=== PATIENT | female | born 1975 | race Caucasian/White ===

== ENCOUNTER → 2017-11-08 | Outpatient (CLI) | payer MEDICAID ==
--- NOTE | 2017-11-09 08:28 | MM ---
Reason for exam: screening (asymptomatic). Last mammogram was performed 5 years and 2 months ago. History: Family history of breast cancer in aunt at age 33. Physical Findings: A clinical breast exam by your physician is recommended on an annual basis and results should be correlated with mammographic findings. MG 3D Screening Mammo W/Cad Bilateral CC and MLO view(s) were taken. Prior study comparison: August 28, 2012, CAD bilateral diagnostic mammogram. February 03, 2011, bilateral digital screening mammo w/CAD. There are scattered fibroglandular densities. Finding: There is a new group of indeterminate calcifications in the left breast. ASSESSMENT: Incomplete: need additional imaging evaluation, BI-RAD 0 RECOMMENDATION: Special view mammogram of the left breast. [facility] will attempt to contact patient to return for supplemental views.
== END | disposition home or self-care (01) ==
LOC: RADMAMWWP 07:20
PROVIDERS: ATTEND Family Medicine
DX: Z12.31 Encounter for screening mammogram for malignant neoplasm of breast (principal)
CPT/HCPCS: 77063; 77067

== ENCOUNTER → 2017-11-11 | Outpatient (CLI) | payer MEDICAID ==
--- NOTE | 2017-11-15 07:54 | MM ---
Reason for exam: additional evaluation requested from abnormal screening. Last mammogram was performed less than 1 month ago. History: Family history of breast cancer in aunt at age 33. Physical Findings: Nurse did not find any significant physical abnormalities on exam. MG 3D Work Up W/Cad LT CC with magnification, LM with magnification, and LM view(s) were taken of the left breast. Prior study comparison: November 08, 2017, bilateral MG 3d screening mammo w/cad. August 28, 2012, CAD bilateral diagnostic mammogram. There are scattered fibroglandular densities. Finding: There is a indeterminate group of microcalcifications in the left breast. These results were verbally communicated with the patient and result sheet given to the patient on 11/11/17. ASSESSMENT: Suspicious, BI-RAD 4 RECOMMENDATION: Stereotactic core biopsy of the left breast. Called Dr. Ev Hess with mammographic findings and has scheduled an appointment for the patient for 12/14/17 at 3:[address] Héctor Hess. Biopsy scheduled for 11/24/17. PRELIMINARY REPORT CALLED AND FAXED TO DR. HESS ON 11/15/17.
== END | disposition home or self-care (01) ==
LOC: RADMAMWWP 06:56
PROVIDERS: ATTEND Family Medicine
DX: R92.8 Other abnormal and inconclusive findings on diagnostic imaging of breast (principal)
CPT/HCPCS: 77065; G0279

== ENCOUNTER 2018-03-02 14:15 | Emergency (ER) | payer MEDICAID ==
[2018-03-02 14:26] VITALS: TEMP 98.3
[2018-03-02] MEDS ORDERED: KETOROLAC 30 MG/ML 1 ML VIAL IVP STA (14:58)
[2018-03-02] MEDS ORDERED: SODIUM CHLORIDE 0.9% 1,000 ML IV STA ×2 (14:58)
[2018-03-02 15:35] LABS: Basophils % (A) 0 %; Eosinophils # (A) 0.3 k/uL (0-0.7); Eosinophils % (A) 4 %; HCT 42.3 % (34.0-46.0); HGB 14.1 gm/dL (11.4-16.0); Lymphocytes # (A) 1.5 k/uL (1.0-4.8); Lymphocytes % (A) 19 %; MCH 29.4 pg (25.0-35.0); MCHC 33.4 g/dL (31.0-37.0); MCV 88.1 fL (80.0-100.0); Mean Platelet Volume 7.7; Monocytes # (A) 0.4 k/uL (0-1.0); Monocytes % (A) 5 %; Neutrophils # (A) 5.7 k/uL (1.3-7.7); Neutrophils % (A) 71 %; Platelet Count 275 k/uL (150-450); RDW 12.9 % (11.5-15.5); WBC 8.1 k/uL (3.8-10.6)
[2018-03-02 15:38] LABS: Appearance,Urine Clear (Clear); Bilirubin,Urine Negative (Negative); Blood,Urine Negative (Negative); Color,Urine Yellow; Glucose,Urine (UA) Negative (Negative); Ketones,Urine Trace (Negative); Leukocyte Esterase,Urine Negative (Negative); Nitrite,Urine Negative (Negative); PH, Urine 5.5 (5.0-8.0); Protein,Urine Negative (Negative); Specific Gravity,Urine 1.022 (1.001-1.035); Urobilinogen,Urine <2.0 mg/dL (<2.0)
[2018-03-02 15:39] LABS: ALT 25 U/L (9-52); AST 19 U/L (14-36); Albumin 4.4 g/dL (3.5-5.0); Alkaline Phosphatase 78 U/L (38-126); Amylase 59 U/L (30-110); Anion Gap 11 mmol/L; Blood Urea Nitrogen 10 mg/dL (7-17); Calcium 9.4 mg/dL (8.4-10.2); Carbon Dioxide 22 mmol/L (22-30); Chloride 106 mmol/L (98-107); Glucose 92 mg/dL (74-99); Lipase 97 U/L (23-300); Potassium 4.1 mmol/L (3.5-5.1); Sodium 139 mmol/L (137-145); Total Bilirubin 0.4 mg/dL (0.2-1.3)
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
--- NOTE | 2018-03-02 15:55 | XR ---
EXAMINATION TYPE: XR KUB DATE OF EXAM: 03/02/2018 3:48 PM CLINICAL HISTORY: Flank pain and lower abdominal pain TECHNIQUE: Single upright image of the abdomen is obtained. COMPARISON: 01/21/2013. FINDINGS: Scattered gas is seen in non-distended small bowel loops. Gas and fecal material is seen in non-distended colon. There is no visceromegaly, pneumoperitoneum, or abnormal calcification apprecia anushka. The lung bases are clear and the osseous structures are intact. IMPRESSION: Nonobstructive bowel gas pattern.
--- NOTE | 2018-03-02 17:09 | CT ---
EXAMINATION TYPE: CT abdomen pelvis w con DATE OF EXAM: 03/02/2018 COMPARISON: 07/29/2014 HISTORY: Low back pain radiating anteriorly. Nausea. CT DLP: 1566 mGycm Automated exposure control for dose reduction was used. TECHNIQUE: Helical acquisition of images was performed from the lung bases through the pelvis. CONTRAST: Performed without Oral Contrast and with IV Contrast, patient injected with 100 mL of Isovue M300. FINDINGS: Lung bases are clear. There is no pleural effusion. Liver spleen pancreas gallbladder appear normal. Bile ducts are not dilated. There is no adrenal mass . Kidneys show satisfactory contrast opacification. There is no hydronephrosis. There is no retroperi toneal adenopathy. There is no ascites. There is some linear density in the subcutaneous fat over the lower anterior abdomen could relate to previous surgery. Bladder distends smoothly. There is no pelv ic mass. Bony structures appear intact. . There is some 2 cm soft tissue density in the small bowel mesentery in the right lower quadrant wit h calcification.: The appendix appears normal. There is a 2.4 x 2 cm density with apparent calcification in the posteri or right lower quadrant. This could be the right ovary. IMPRESSION: THERE IS A SMALL BOWEL MESENTERIC MASS WITH CALCIFICATION. THERE IS ALSO A SECOND MASS WITH CALCIFICA TION POSTERIORLY IN THE PELVIS ON THE RIGHT SIDE. THE SECOND MORE POSTERIOR DENSITY COULD BE THE RIGH T OVARY. THESE DENSITIES HAVE INCREASED COMPARED TO OLD CT SCAN OF 07/29/2014. CLINICAL SIGNIFICANCE IS NOT CLEAR. THERE IS HYSTERECTOMY COMPARED TO OLD EXAM.
[2018-03-02] MEDS ORDERED: MORPHINE SULFATE 2 MG/ML SYRINGE IVP STA (17:24)
[2018-03-02] MEDS ORDERED: ORPHENADRINE 30 MG/ML 2 ML VIAL IVP STA (17:25)
[2018-03-02 17:50] VITALS: BP 136/79; PULSE 79; RESP 16
[2018-03-02] MEDS ORDERED: ACET/COD 300 MG/30 MG STARTER PACK 6 TAB BTL PO STA (17:58)
== END 2018-03-02 18:18 | disposition home or self-care (01) ==
LOC: EC 14:15
DX: R19.00 Intra-abdominal and pelvic swelling, mass and lump, unspecified site (principal); M54.5 Low back pain; F41.9 Anxiety disorder, unspecified; F32.9 Major depressive disorder, single episode, unspecified; Z87.19 Personal history of other diseases of the digestive system; Z87.42 Personal history of other diseases of the female genital tract; Z90.710 Acquired absence of both cervix and uterus; Z98.890 Other specified postprocedural states; Z79.899 Other long term (current) drug therapy; Z88.5 Allergy status to narcotic agent; Z88.6 Allergy status to analgesic agent; Z88.8 Allergy status to other drugs, medicaments and biological substances
CPT/HCPCS: 36415; 74018; 74177; 80053; 81003; 82150; 83690; 85025; 93005; 96361; 96374; 96375; 99285

== ENCOUNTER → 2018-05-17 | Outpatient (CLI) | payer MEDICAID ==
--- NOTE | 2018-05-17 09:57 | MM ---
Reason for exam: follow-up at short interval from prior study. Last mammogram was performed 6 months ago. History: Family history of breast cancer in aunt at age 33. Benign MG stereo VAD BX LT of the left breast, November 24, 2017. Physical Findings: Nurse did not find any significant physical abnormalities on exam. MG 3D Diag Mammo W/Cad LT CC, MLO, and ML view(s) were taken of the left breast. Prior study comparison: November 11, 2017, left breast MG 3d work up w/cad LT. November 08, 2017, bilateral MG 3d screening mammo w/cad. There are scattered fibroglandular densities. Previous mammotome biopsy in the left breast. There is chronic nodularity in the left breast. No significant new findings when compared with previous films. These results were verbally communicated with the patient and result sheet given to the patient on 05/17/18. ASSESSMENT: Negative, BI-RAD 1 RECOMMENDATION: Return to routine screening mammogram schedule for both breasts.
== END | disposition home or self-care (01) ==
LOC: RADMAMWWP 07:34
PROVIDERS: ATTEND Surgery
DX: R92.8 Other abnormal and inconclusive findings on diagnostic imaging of breast (principal)
CPT/HCPCS: 77061; 77065

== ENCOUNTER → 2018-07-05 | Day surgery (SDC) | payer BC, MEDICAID ==
[2018-07-04 14:27] VITALS: BMI 32.5
[~2018-07-05] MED LIST: LACTATED RINGERS 1,000 ML IV SCH; PROPOFOL 10 MG/ML 20 ML VIAL IV ONE
[2018-07-05 13:18] VITALS: RESP 16; TEMP 98.7
--- NOTE | 2018-07-05 13:42 | P.GSHP ---
History of Present Illness H&P Date: 07/05/18 Chief Complaint: Change in bowel habits Patient here today for colonoscopy. She has a history of CAT scan findings of a calcified mass in her right side mesentery. Mild constipation occasionally. No rectal bleeding or melena. Past Medical History Past Medical History: Asthma Additional Past Medical History / Comment(s): gastric ulcers, GI bleed History of Any Multi-Drug Resistant Organisms: None Reported Past Surgical History: Section, Hysterectomy, Orthopedic Surgery Additional Past Surgical History / Comment(s): ovarian cyst, femur, oral surgery Past Anesthesia/Blood Transfusion Reactions: No Reported Reaction Smoking Status: Never smoker - Past Family History Father Family Medical History: COPD, Hyperlipidemia, Hypertension Sister(s) Additional Family Medical History / Comment(s): heart disease @ 8 months, congenital Mother Family Medical History: Hyperlipidemia, Hypertension Medications and Allergies Home Medications Medication Instructions Recorded Confirmed Type Sertraline [Zoloft] 100 mg PO DAILY 02/26/15 07/05/18 History Zolpidem [Ambien] 10 mg PO HS 02/26/15 07/05/18 History Phentermine HCl [Adipex-P] 37.5 mg PO QAM 11/14/17 07/05/18 History Acetaminophen/Diphenhydramine 1 each PO HS 07/04/18 07/05/18 History [Tylenol PM Extra Strength] Allergies Allergy/AdvReac Type Severity Reaction Status Date / Time ibuprofen AdvReac PAST Verified 07/05/18 13:19 HISTORY OF GI BLEED morphine AdvReac Rapid Verified 07/05/18 13:19 Heart Rate, "JITTERY" pregabalin [From Lyrica] AdvReac JITTERY, Verified 07/05/18 13:19 PALPITATIONS Surgical - Exam Vital Signs Temp Pulse Resp BP Pulse Ox 98.7 F 88 16 127/78 100 07/05/18 13:12 07/05/18 13:12 07/05/18 13:12 07/05/18 13:12 07/05/18 13:12 Physical exam: General: Well-developed, well-nourished HEENT: Normocephalic, sclerae nonicteric Abdomen: Nontender, nondistended Extremities: No edema Neuro: Alert and oriented Assessment and Plan (1) Change in bowel habits Narrative/Plan: Will proceed with colonoscopy Current Visit: Yes Status: Acute Code(s): R19.4 - CHANGE IN BOWEL HABIT SNOMED Code(s): 730842079
--- NOTE | 2018-07-05 14:07 | P.PCN ---
Date of Procedure: 07/05/18 Procedure(s) Performed: PREOPERATIVE DIAGNOSIS: Change in bowel habits, recent abnormal CAT scan POSTOPERATIVE DIAGNOSIS: Ileocecal valve lesion, transverse colon polyp PROCEDURE: Colonoscopy with snare polypectomy and biopsy ANESTHESIA: MAC SURGEON: Héctor Hess M.D. SPECIMENS: Ileocecal valve lesion, polyp ENDOSCOPIC PROCEDURE: The patient was placed on the endoscopy table in the left decubitus position. The Olympus colonoscope was inserted into the anus and passed under direct visualization to the base of the cecum. The appendiceal orifice was visualized. From that point the scope was slowly withdrawn inspecting all surfaces carefully. At the valve itself there appeared to be some friability. It was difficult to visualize this area well. It appeared to be right at the ileocecal valve however. 2 biopsies were taken using the cold biopsy forceps. This appeared somewhat friable and there was some oozing. This eventually subsided. I was unable to intubate the ileocecal valve itself The remainder of the cecum and ascending colon appeared normal. In the mid transverse colon a pedunculated polyp was identified and removed using the snare with cautery technique. The remainder of the transverse descending sigmoid and rectum appeared normal. There was no visible diverticulosis. Digital rectal examination was normal. The patient was taken to the recovery room in stable condition per anesthesia guidelines. RECOMMENDATIONS: Await biopsy results. Follow-up in the office 1-2 weeks.
[2018-07-05 14:39] VITALS: BP 110/77; PULSE 76
== END | disposition home or self-care (01) ==
LOC: ORWHC2ENDO 12:43
PROVIDERS: ATTEND Surgery
DX: C7A.021 Malignant carcinoid tumor of the cecum (principal); D12.3 Benign neoplasm of transverse colon; J45.909 Unspecified asthma, uncomplicated; F41.9 Anxiety disorder, unspecified; F32.9 Major depressive disorder, single episode, unspecified; E66.9 Obesity, unspecified; Z82.49 Family history of ischemic heart disease and other diseases of the circulatory system; Z79.899 Other long term (current) drug therapy; Z88.6 Allergy status to analgesic agent; Z88.5 Allergy status to narcotic agent; Z88.8 Allergy status to other drugs, medicaments and biological substances; Z79.891 Long term (current) use of opiate analgesic; Z68.36 Body mass index [BMI] 36.0-36.9, adult
CPT/HCPCS: 88305; 88342; 88341; 45385; 45380; J2704

== ENCOUNTER → 2018-07-19 | Outpatient (CLI) | payer BC ==
[2018-07-19 10:43] LABS: Basophils % (A) 1 %; Eosinophils # (A) 0.3 k/uL (0-0.7); Eosinophils % (A) 5 %; HCT 44.9 % (34.0-46.0); HGB 14.6 gm/dL (11.4-16.0); Lymphocytes # (A) 1.4 k/uL (1.0-4.8); Lymphocytes % (A) 26 %; MCH 29.7 pg (25.0-35.0); MCHC 32.6 g/dL (31.0-37.0); MCV 91.1 fL (80.0-100.0); Mean Platelet Volume 6.9; Monocytes # (A) 0.3 k/uL (0-1.0); Monocytes % (A) 5 %; Neutrophils # (A) 3.3 k/uL (1.3-7.7); Neutrophils % (A) 60 %; Platelet Count 324 k/uL (150-450); RBC 4.92 m/uL (3.80-5.40); WBC 5.4 k/uL (3.8-10.6)
[2018-07-19 15:56] LABS: Albumin 4.7 g/dL (3.80-4.90); Albumin/Globulin Ratio 2.47 (1.20-2.10); Anion Gap 6.8 mmol/L (4.00-12.00); Calcium 9.4 mg/dL (8.7-10.3); Carbon Dioxide 28.2 mmol/L (21.6-31.8); Globulin 1.9 g/dL (2.1-3.7); Potassium 5.1 mmol/L (3.5-5.5); Total Bilirubin 0.3 mg/dL (0.3-1.2); Total Protein 6.6 g/dL (6.2-8.2)
== END | disposition home or self-care (01) ==
LOC: LABWHC1 09:37
PROVIDERS: ATTEND Internal Medicine Hematology & Oncology
DX: C7A.021 Malignant carcinoid tumor of the cecum (principal); C7A.098 Malignant carcinoid tumors of other sites; J45.998 Other asthma; M12.9 Arthropathy, unspecified; N18.9 Chronic kidney disease, unspecified; D63.1 Anemia in chronic kidney disease
CPT/HCPCS: 36415; 80053; 83497; 84260; 85025; 86316

== ENCOUNTER → 2018-07-24 | Outpatient (CLI) | payer BC ==
--- NOTE | 2018-07-24 14:56 | CT ---
EXAMINATION TYPE: CT ChestAbdPelvis w con DATE OF EXAM: 07/24/2018 COMPARISON: Prior CT abdomen pelvis 03/02/[address] scan 07/29/2014 HISTORY: Colon CA, R/O metastatic disease CT DLP: 1925 mGycm Automated exposure control for dose reduction was used. CONTRAST: CT scan of the chest, abdomen and pelvis is performed with Oral Contrast and with IV Contrast, patien t injected with 100 mL of Isovue 300. FINDINGS: Anterior abdominal wall hernia contains fat and the periumbilical location towards the righ t. There are 2 calcifications in the right lower quadrant, increasing soft tissue mass is present at this level which now measures approximately 2.3 x 1.9 x 1.8 cm compared to prior of 07/29/2014 but it only measured 14 mm in greatest dimension and approximately 2 cm in greatest transverse dimension on most recent CT abdomen pelvis. LUNGS: The lungs are grossly clear, there is no concerning parenchymal mass or nodule identified. T here is no pleural effusion or pneumothorax seen. The tracheobronchial tree is patent. MEDIASTINUM: There are no greater than 1 cm hilar or mediastinal lymph nodes. No pericardial effusi on is seen. AORTA: No significant abnormality is seen. OTHER: No additional significant abnormality is seen. LIVER/GB: No significant abnormality is appreciated. PANCREAS: No significant abnormality is seen. SPLEEN: No significant abnormality is seen. ADRENALS: No significant abnormality is seen. KIDNEYS: No significant abnormality is seen. REPRODUCTIVE ORGANS: Probable bilateral ovarian tissue present along the pelvic sidewalls similar to prior, uterus is absent. BOWEL: Axial image #60 shows nonspecific bowel wall thickening which has developed in the interval, I question whether this represents patient's known colon cancer. Colonic wall thickening also noted a t the rectosigmoid level, axial image 106. FREE AIR: No Free Air visible. ASCITES: None seen. RETROPERITONEAL ADENOPATHY: No retroperitoneal adenopathy is seen. LYMPH NODES: No greater than 1 cm abdominal or pelvic lymph nodes are appreciated. URINARY BLADDER: No significant abnormality is seen. PELVIC ADENOPATHY: None visualized. OSSEOUS STRUCTURES: No significant abnormality is seen. IMPRESSION: Nonspecific colonic wall thickening. No evident adenopathy or ascites, no liver mass. Pos top changes.
== END | disposition home or self-care (01) ==
LOC: RADCTMAIN 11:53
PROVIDERS: ATTEND Internal Medicine Hematology & Oncology
DX: K63.89 Other specified diseases of intestine (principal); C7A.021 Malignant carcinoid tumor of the cecum; Z88.8 Allergy status to other drugs, medicaments and biological substances
CPT/HCPCS: 71260; 74177; Q9967

== ENCOUNTER → 2018-08-16 | Outpatient (CLI) | payer BC ==
[2018-08-16 16:14] LABS: HCT 44.9 % (34.0-46.0); HGB 14.5 gm/dL (11.4-16.0); MCH 29.6 pg (25.0-35.0); MCHC 32.3 g/dL (31.0-37.0); MCV 91.5 fL (80.0-100.0); Mean Platelet Volume 7.7; Platelet Count 317 k/uL (150-450); WBC 10.2 k/uL (3.8-10.6)
[2018-08-16 16:35] LABS: Potassium 5.3 mmol/L (3.5-5.1)
== END | disposition home or self-care (01) ==
LOC: LABPAT 15:21
PROVIDERS: ATTEND Surgery
DX: Z01.812 Encounter for preprocedural laboratory examination (principal); C18.9 Malignant neoplasm of colon, unspecified
CPT/HCPCS: 36415; 80051; 85027; 86850; 86900; 86901

== ENCOUNTER 2018-08-25 07:45 | Inpatient (IN) | payer BC ==
[2018-08-21 11:14] VITALS: BMI 32.8
[~2018-08-25 07:45] MED LIST changes: +ALVIMOPAN 12 MG CAPSULE PO ONE; +DEXAMETHASONE SOD PHOSPHATE 10 MG/ML 1 ML VIAL IV ONE; +HEPARIN SODIUM,PORCINE 5,000 UNIT/ML 1 ML VIAL SQ ONE; -LACTATED RINGERS 1,000 ML IV SCH; +LIDOCAINE 1% 20 ML VIAL (10MG/ML) FOR IV START INTRADERMA PRN; +MIDAZOLAM (PF) 2 MG/2 ML VIAL IV PRN; -PROPOFOL 10 MG/ML 20 ML VIAL IV ONE; +ceFAZolin IN SWFI 2 GM/20 ML SYRINGE IVP ONE; +fentaNYL (PF) 50 MCG/ML 2 ML AMP IV PRN; +fentaNYL (PF) 50 MCG/ML 20 ML VIAL IVP PRN; +metroNIDAZOLE-NS PMX 500 MG in SALINE 1 100ML.BAG IVPB ONE
[2018-08-25] MEDS: LACTATED RINGERS 1,000 ML IV SCH ×3 (08:45→15:55)
[2018-08-25] MEDS ORDERED: ONDANSETRON 4 MG/2 ML VIAL IVP ONE (09:00)
[2018-08-25] MEDS ORDERED: fentaNYL (PF) 50 MCG/ML 2 ML AMP IV ONE (09:00)
[2018-08-25] MEDS ORDERED: SCOPOLAMINE 1.5MG/72HR PATCH TRANSDERM ONE (09:00)
[2018-08-25] MEDS ORDERED: NALOXONE 0.4 MG/ML 1 ML VIAL IV PRN (09:58)
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
[2018-08-25] MEDS ORDERED: GLYCOPYRROLATE 0.2 MG/ML 2 ML VIAL ONE (10:10)
[2018-08-25] MEDS ORDERED: fentaNYL (PF) 50 MCG/ML 2 ML AMP ONE (10:10)
[2018-08-25] MEDS ORDERED: VECURONIUM 10 MG VIAL IV ONE (10:10)
[2018-08-25] MEDS ORDERED: NEOSTIGMINE 1 MG/ML 10 ML VIAL ONE (10:10)
[2018-08-25] MEDS ORDERED: PROPOFOL 10 MG/ML 20 ML VIAL IV ONE (10:10)
[2018-08-25] MEDS ORDERED: LIDOCAINE 1% INJ 10MG/ML (20 ML MDV) ONE (10:10)
[2018-08-25] MEDS ORDERED: MIDAZOLAM 2 MG/2 ML VIAL ONE (10:10)
[2018-08-25] MEDS ORDERED: ePHEDrine SULFATE/0.9% NACL/PF 50 MG/5 ML SYRINGE IV ONE (10:10)
[2018-08-25] MEDS ORDERED: LACTATED RINGERS 1,000 ML IV ONE ×2 (12:15)
[2018-08-25] MEDS ORDERED: ONDANSETRON 4 MG/2 ML VIAL IVP PRN (13:06)
[2018-08-25] MEDS ORDERED: METOCLOPRAMIDE 5 MG/ML 2 ML VIAL IVP PRN (13:06)
[2018-08-25] MEDS: ROPIVACAINE 250 MG, HYDROMORPHONE (PF) 5 MG in SODIUM CHLORIDE 0.9% 200 ML EPIDURAL PRN ×3 (13:11→14:55)
--- NOTE | 2018-08-25 13:13 | P.OP ---
Date of Procedure: 08/25/18 Procedure(s) Performed: PREOPERATIVE DIAGNOSIS: Carcinoid tumor of right colon, umbilical hernia POSTOPERATIVE DIAGNOSIS: Same PROCEDURE: Right colectomy, lysis of adhesions, repair umbilical hernia SURGEON: Jimena EBL: 100 mL ANESTHESIA: General COMPLICATIONS: None OPERATIVE PROCEDURE: Patient place in the operative table in the supine position. The patient was placed under general anesthesia. Delacruz catheter was placed. Abdomen was prepped and draped in usual sterile fashion. Midline incision was created using the scalpel. Dissection through the subcutaneous fat took place using electrocautery. The patient's fascia was divided using electrocautery as well. There was a defect at the umbilicus in the fascia with a hernia present there. This defect was 1.5 cm in diameter. This was incorporated into our fascial opening. The patient had adhesions to the lower aspect of the incision and the right lower quadrant that were lysed using sharp and electrocautery. The Bookwalter retractor was utilized. The bowel was palpated. The mesenteric nodule and the cecal tumor were palpable. The colon was mobilized medially by incising the white line of Toldt along the ascending colon and cecum. Blunt dissection brought the bowel medially. The duodenum and ureter were preserved. Once I was satisfied with our mobilization of the terminal ileum was divided using a linear 75 stapler. The mid transverse colon was divided using a linear 75 stapler. The mesentery of the bowel was divided using both 0 silk ties and the LigaSure device. Following that a [id number] anastomosis took place. The antimesenteric portion of the staple line was excised. The linear 75 stapler was fired along the antimesenteric border. The remaining defect was then closed using a TX 60 stapler. A 3-0 GI silk crotch stitch was placed. The TX 60 line was imbricated using interrupted 3-0 GI silk sutures. Irrigation took place with no evidence of bleeding. Anastomosis was widely patent. The liver visibly appeared normal. I was able to palpate 2 smaller nodules along the posterior aspect of the right lobe of the liver. I could not visualize this well enough to biopsy or determine the nature of these 2 small superficial nodules. These were approximately 8-10 mm in size. No additional abnormalities were identified. The midline fascia was then reapproximated using 2 separate #1 PDS sutures. The subcutaneous tissues were closed using interrupted 2-0 Vicryl sutures. The skin was closed using mason. Sterile dressings and an abdominal binder was applied. DISPOSITION: Stable to recovery room
[2018-08-25] MEDS: HYDROmorphone 1 MG/ML 1 ML SYRINGE IVP ONE ×2 (13:39→13:51)
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
[2018-08-25] MEDS: HEPARIN SODIUM,PORCINE 5,000 UNIT/ML 1 ML VIAL SQ SCH (16:47)
[2018-08-25] MEDS: diphenhydrAMINE 25 MG CAP PO PRN (19:44)
[2018-08-25] MEDS: D5-0.45% NACL WITH KCL 20MEQ/L 1,000 ML IV SCH ×2 (19:44→21:46)
[2018-08-25] MEDS: FAMOTIDINE 20 MG/2 ML VIAL IV SCH (20:55)
[2018-08-26] MEDS: HEPARIN SODIUM,PORCINE 5,000 UNIT/ML 1 ML VIAL SQ SCH ×4 (00:19→23:45)
[2018-08-26] MEDS: D5-0.45% NACL WITH KCL 20MEQ/L 1,000 ML IV SCH ×3 (02:13→23:47)
[2018-08-26] MEDS: diphenhydrAMINE 25 MG CAP PO PRN (02:13)
[2018-08-26] MEDS: ROPIVACAINE 250 MG, HYDROMORPHONE (PF) 5 MG in SODIUM CHLORIDE 0.9% 200 ML EPIDURAL PRN (06:43)
[2018-08-26] MEDS ORDERED: HYDROmorphone 0.5 MG/0.5 ML SYRINGE IVP PRN (06:50)
--- NOTE | 2018-08-26 07:14 | P.PN ---
Progress Note - Text Progress Note Date: 08/26/18 Postoperative day #1 status post colectomy epidural catheter placed for postoperative analgesia, patient doing well epidural site okay, patient currently on combination of epidural infusion solution of Ropivacaine 0.0625% and Dilaudid 20 g per mL the infusion rate at 9 ml per hour , patient had no motor deficit epidural site okay , vital signs stable ,VAS 5 /10 , Assessment and plan= post operative day #1 patient doing well , patient complaining of pain , patient given bolus of 5 ML of the epidural infusion , and the infusion rate increased to 10 ML per hour , and patient will get Dilaudid 0.5 mg IV for breakthrough pain .
[2018-08-26 08:18] LABS: Anion Gap 5 mmol/L; Blood Urea Nitrogen 7 mg/dL (7-17); Calcium 8.4 mg/dL (8.4-10.2); Carbon Dioxide 29 mmol/L (22-30); Chloride 101 mmol/L (98-107); Glucose 93 mg/dL (74-99); Potassium 4.6 mmol/L (3.5-5.1); Sodium 135 mmol/L (137-145)
[2018-08-26 08:24] LABS: Basophils % (A) 0 %; Eosinophils # (A) 0.2 k/uL (0-0.7); Eosinophils % (A) 2 %; HCT 39.7 % (34.0-46.0); HGB 12.6 gm/dL (11.4-16.0); Lymphocytes # (A) 1.6 k/uL (1.0-4.8); Lymphocytes % (A) 17 %; MCH 29.5 pg (25.0-35.0); MCHC 31.8 g/dL (31.0-37.0); MCV 92.9 fL (80.0-100.0); Mean Platelet Volume 6.5; Monocytes # (A) 0.5 k/uL (0-1.0); Monocytes % (A) 5 %; Neutrophils # (A) 6.9 k/uL (1.3-7.7); Neutrophils % (A) 75 %; Platelet Count 287 k/uL (150-450); RBC 4.28 m/uL (3.80-5.40); WBC 9.3 k/uL (3.8-10.6)
[2018-08-26] MEDS: NALBUPHINE 10 MG/ML (1 ML AMP) IV PRN ×3 (08:28→21:40)
[2018-08-26] MEDS: FAMOTIDINE 20 MG/2 ML VIAL IV SCH ×2 (08:28→21:40)
[2018-08-26] MEDS: SERTRALINE 100 MG TAB PO SCH (08:28)
[2018-08-26] MEDS: ALVIMOPAN 12 MG CAPSULE PO SCH ×2 (08:28→21:40)
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
[2018-08-26] MEDS: LACTATED RINGERS 1,000 ML IV SCH (16:49)
[2018-08-26] MEDS: ALBUTEROL NEBULIZED 2.5 MG/3 ML INHALATION PRN (21:07)
[2018-08-27] MEDS: ROPIVACAINE 250 MG, HYDROMORPHONE (PF) 5 MG in SODIUM CHLORIDE 0.9% 200 ML EPIDURAL PRN ×2 (02:47→22:07)
[2018-08-27] MEDS: D5-0.45% NACL WITH KCL 20MEQ/L 1,000 ML IV SCH ×3 (06:30→22:13)
[2018-08-27] MEDS: NALBUPHINE 10 MG/ML (1 ML AMP) IV PRN ×3 (06:30→20:13)
[2018-08-27 07:43] LABS: Basophils % (A) 0 %; Eosinophils # (A) 0.3 k/uL (0-0.7); Eosinophils % (A) 4 %; HGB 11.8 gm/dL (11.4-16.0); Lymphocytes # (A) 1.4 k/uL (1.0-4.8); Lymphocytes % (A) 16 %; MCH 29.4 pg (25.0-35.0); MCHC 31.8 g/dL (31.0-37.0); MCV 92.5 fL (80.0-100.0); Mean Platelet Volume 6.3; Monocytes # (A) 0.4 k/uL (0-1.0); Monocytes % (A) 5 %; Neutrophils # (A) 6.7 k/uL (1.3-7.7); Neutrophils % (A) 74 %; Platelet Count 268 k/uL (150-450); RDW 13.1 % (11.5-15.5)
[2018-08-27] MEDS: LACTATED RINGERS 1,000 ML IV SCH (07:59)
[2018-08-27] MEDS: ALVIMOPAN 12 MG CAPSULE PO SCH ×2 (08:00→20:13)
[2018-08-27] MEDS: HEPARIN SODIUM,PORCINE 5,000 UNIT/ML 1 ML VIAL SQ SCH ×2 (08:00→15:54)
[2018-08-27] MEDS: FAMOTIDINE 20 MG/2 ML VIAL IV SCH ×2 (08:00→20:13)
[2018-08-27] MEDS: SERTRALINE 100 MG TAB PO SCH (08:01)
[2018-08-27 08:08] LABS: Anion Gap 5 mmol/L; Blood Urea Nitrogen 3 mg/dL (7-17); Calcium 8.6 mg/dL (8.4-10.2); Carbon Dioxide 27 mmol/L (22-30); Chloride 104 mmol/L (98-107); Glucose 99 mg/dL (74-99); Potassium 4.6 mmol/L (3.5-5.1); Sodium 136 mmol/L (137-145)
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
--- NOTE | 2018-08-27 11:29 | P.PN ---
Subjective Progress Note Date: 08/26/18 CHIEF COMPLAINT: Status post right hemicolectomy HISTORY OF PRESENT ILLNESS: The patient is a 42-year-old female status post right hemicolectomy, 08/25/2018 for carcinoid tumor. She is postop day 1. She is ambulating. Pain is controlled with epidural. No reports her nausea and vomiting. PHYSICAL EXAM: VITAL SIGNS: Reviewed GENERAL: Well-developed in no acute distress. HEENT: No sclera icterus. Extraocular movements grossly intact. Moist buccal mucosa. Head is atraumatic, normocephalic. Hears conversational speech. No nasal drainage. NECK: Supple without lymphadenopathy. CHEST: Non-labored respirations and equal bilateral excursions. CARDIOVASCULAR: Palpable 2+ radial pulses. Regular rate and regular rhythm ABDOMEN: Soft. No peritonitis. Dressing clean dry and intact MUSCULOSKELETAL: No clubbing, cyanosis or edema. NEUROLOGIC: No focal or lateralizing signs. Cranial nerves II through XII grossly intact. PSYCH: Appropriate affect. Alert and oriented to person, place and time. SKIN: Well perfused. Good skin turgor. LABS: Reviewed ASSESSMENT: 1. Carcinoid tumor status post right hemicolectomy PLAN: 1. Continue epidural as per discussion with her operating surgeon 2. Enhanced colon recovery program 3. DVT prophylaxis 4. Incentive spirometry for pulmonary toilet Objective - Vital Signs Vital signs: Vital Signs Temp 99.3 F 08/27/18 07:00 Pulse 78 08/27/18 07:00 Resp 14 08/27/18 07:00 BP 110/73 08/27/18 07:00 Pulse Ox 98 08/27/18 07:00 Intake & Output 08/26/18 08/27/18 08/27/18 18:59 06:59 18:59 Intake Total 1800 1325.667 Output Total 1300 1775 Balance 500 -449.333 Intake: IV 1000 D5-0.45% NaCl with KCl 1000 20Meq/l 1,000 ml @ 125 mls/hr IV .Q8H KORIN Rx#: [id number] Intake, IV Titration 1325.667 Amount D5-0.45% NaCl with KCl 1125 20Meq/l 1,000 ml @ 125 mls/hr IV .Q8H KORIN Rx#: [id number] Ropivacaine 250 mg 200.667 Hydromorphone (Pf) 5 mg In Sodium Chloride 0.9% 200 ml @ Per Protocol EPIDURAL .Q0M PRN Rx#: [id number] Oral 800 Output: Urine 1300 1775 Uretheral (Delacruz) 1300 Other: Voiding Method Indwelling Catheter Indwelling Catheter Indwelling Catheter - Labs CBC & Chem 7: 08/27/18 07:07 08/27/18 07:07 Labs: Abnormal Lab Results - Last 24 Hours (Table) 08/27/18 Range/Units 07:07 Sodium 136 L (137-145) mmol/L BUN 3 L (7-17) mg/dL Assessment and Plan (1) S/P right colectomy Current Visit: Yes Status: Acute Code(s): Z90.49 - ACQUIRED ABSENCE OF OTHER SPECIFIED PARTS OF DIGESTIVE TRACT SNOMED Code(s): 858234721 (2) Carcinoid tumor of colon Current Visit: Yes Status: Acute Code(s): D3A.029 - BENIGN CARCINOID TUMOR OF THE LARGE INTESTINE, UNSP PORTION SNOMED Code(s): 787899030 (3) Depressive disorder Current Visit: Yes Status: Acute Code(s): F32.9 - MAJOR DEPRESSIVE DISORDER , SINGLE EPISODE, UNSPECIFIED SNOMED Code(s): 37810134 (4) Asthma Current Visit: Yes Status: Acute Code(s): J45.909 - UNSPECIFIED ASTHMA, UNCOMPLICATED SNOMED Code(s): 288672829
[2018-08-27] MEDS: ALBUTEROL NEBULIZED 2.5 MG/3 ML INHALATION PRN (13:04)
--- NOTE | 2018-08-27 14:38 | P.PN ---
Subjective Progress Note Date: 08/27/18 CHIEF COMPLAINT: Status post right hemicolectomy HISTORY OF PRESENT ILLNESS: The patient is a 42-year-old female status post right hemicolectomy, 08/25/2018 for carcinoid tumor. She is postop day 2. She is tolerating liquid diet. She is yet to pass flatus and have a bowel movement. PHYSICAL EXAM: VITAL SIGNS: Reviewed GENERAL: Well-developed in no acute distress. HEENT: No sclera icterus. Extraocular movements grossly intact. Moist buccal mucosa. Head is atraumatic, normocephalic. Hears conversational speech. No nasal drainage. NECK: Supple without lymphadenopathy. CHEST: Non-labored respirations and equal bilateral excursions. CARDIOVASCULAR: Palpable 2+ radial pulses. Regular rate and regular rhythm ABDOMEN: Soft. No peritonitis. Minimal shadowing along the midline incision. Otherwise nontender. MUSCULOSKELETAL: No clubbing, cyanosis or edema. NEUROLOGIC: No focal or lateralizing signs. Cranial nerves II through XII grossly intact. PSYCH: Appropriate affect. Alert and oriented to person, place and time. SKIN: Well perfused. Good skin turgor. LABS: Reviewed ASSESSMENT: 1. Carcinoid tumor status post right hemicolectomy PLAN: 1. She is doing very well for ambulation. 2. Epidural including Delacruz to be discontinued tomorrow. 3. Continue full liquid diet Objective - Vital Signs Vital signs: Vital Signs Temp 99.3 F 08/27/18 07:00 Pulse 84 08/27/18 13:15 Resp 14 08/27/18 07:00 BP 110/73 08/27/18 07:00 Pulse Ox 98 08/27/18 07:00 Intake & Output 08/26/18 08/27/18 08/27/18 18:59 06:59 18:59 Intake Total 1800 1325.667 Output Total 1300 1775 Balance 500 -449.333 Intake: IV 1000 D5-0.45% NaCl with KCl 1000 20Meq/l 1,000 ml @ 125 mls/hr IV .Q8H KORIN Rx#: [id number] Intake, IV Titration 1325.667 Amount D5-0.45% NaCl with KCl 1125 20Meq/l 1,000 ml @ 125 mls/hr IV .Q8H KORIN Rx#: [id number] Ropivacaine 250 mg 200.667 Hydromorphone (Pf) 5 mg In Sodium Chloride 0.9% 200 ml @ Per Protocol EPIDURAL .Q0M PRN Rx#: [id number] Oral 800 Output: Urine 1300 1775 Uretheral (Delacruz) 1300 Other: Voiding Method Indwelling Catheter Indwelling Catheter Indwelling Catheter # Voids 2 - Labs CBC & Chem 7: 08/27/18 07:07 08/27/18 07:07 Labs: Abnormal Lab Results - Last 24 Hours (Table) 08/27/18 Range/Units 07:07 Sodium 136 L (137-145) mmol/L BUN 3 L (7-17) mg/dL Assessment and Plan (1) S/P right colectomy Current Visit: Yes Status: Acute Code(s): Z90.49 - ACQUIRED ABSENCE OF OTHER SPECIFIED PARTS OF DIGESTIVE TRACT SNOMED Code(s): 668021429 (2) Carcinoid tumor of colon Current Visit: Yes Status: Acute Code(s): D3A.029 - BENIGN CARCINOID TUMOR OF THE LARGE INTESTINE, UNSP PORTION SNOMED Code(s): 496943630 (3) Depressive disorder Current Visit: Yes Status: Acute Code(s): F32.9 - MAJOR DEPRESSIVE DISORDER , SINGLE EPISODE, UNSPECIFIED SNOMED Code(s): 26260365 (4) Asthma Current Visit: Yes Status: Acute Code(s): J45.909 - UNSPECIFIED ASTHMA, UNCOMPLICATED SNOMED Code(s): 112357002
[2018-08-28] MEDS: HEPARIN SODIUM,PORCINE 5,000 UNIT/ML 1 ML VIAL SQ SCH ×4 (00:14→23:29)
[2018-08-28] MEDS: D5-0.45% NACL WITH KCL 20MEQ/L 1,000 ML IV SCH ×3 (00:50→23:29)
[2018-08-28] MEDS: NALBUPHINE 10 MG/ML (1 ML AMP) IV PRN (00:50)
[2018-08-28 06:35] LABS: Basophils % (A) 0 %; Eosinophils # (A) 0.4 k/uL (0-0.7); Eosinophils % (A) 5 %; HCT 36.2 % (34.0-46.0); HGB 11.9 gm/dL (11.4-16.0); Lymphocytes # (A) 1.4 k/uL (1.0-4.8); Lymphocytes % (A) 19 %; MCH 30.4 pg (25.0-35.0); MCHC 32.8 g/dL (31.0-37.0); MCV 92.8 fL (80.0-100.0); Mean Platelet Volume 6.8; Monocytes # (A) 0.3 k/uL (0-1.0); Monocytes % (A) 5 %; Neutrophils # (A) 4.9 k/uL (1.3-7.7); Neutrophils % (A) 68 %; Platelet Count 268 k/uL (150-450); RDW 12.9 % (11.5-15.5); WBC 7.1 k/uL (3.8-10.6)
[2018-08-28 06:45] LABS: Anion Gap 5 mmol/L; Blood Urea Nitrogen 2 mg/dL (7-17); Calcium 8.8 mg/dL (8.4-10.2); Carbon Dioxide 29 mmol/L (22-30); Chloride 106 mmol/L (98-107); Glucose 96 mg/dL (74-99); Potassium 4.6 mmol/L (3.5-5.1); Sodium 140 mmol/L (137-145)
--- NOTE | 2018-08-28 06:45 | P.PN ---
Progress Note - Text Progress Note Date: 08/28/18 Post op day 2 VAS 4/10 Patient denies any pain with epidural vitals WNL Discussed with primary team, Epidural Out today
--- NOTE | 2018-08-28 06:46 | P.PN ---
Progress Note - Text Progress Note Date: 08/27/18 patient POD [address] with VAS 5/10 Denies any complaints continue with Rop/dilaudid solution at current rate will plan for epidural removal tmw.
[2018-08-28] MEDS: ALVIMOPAN 12 MG CAPSULE PO SCH ×2 (07:37→20:21)
[2018-08-28] MEDS: SERTRALINE 100 MG TAB PO SCH (07:37)
[2018-08-28] MEDS: FAMOTIDINE 20 MG/2 ML VIAL IV SCH (07:37)
[2018-08-28] MEDS: ALBUTEROL NEBULIZED 2.5 MG/3 ML INHALATION PRN (07:44)
[2018-08-28] MEDS: HYDROmorphone 1 MG/ML 1 ML SYRINGE IVP PRN ×2 (12:59→19:04)
--- NOTE | 2018-08-28 13:53 | P.PN ---
Subjective Progress Note Date: 08/28/18 Principal diagnosis: Carcinoid of cecum Patient doing well today. Epidural was removed this morning. Minimal pain. She had flatus this morning. She is afebrile. Labs noted. Objective - Vital Signs Vital signs: Vital Signs Temp 98.1 F 08/28/18 07:44 Pulse 80 08/28/18 07:53 Resp 16 08/28/18 07:44 BP 125/79 08/28/18 07:44 Pulse Ox 97 08/28/18 07:44 Intake & Output 08/27/18 08/28/18 08/28/18 18:59 06:59 18:59 Intake Total 1818.333 800 Output Total 1999 1550 Balance -1999 268.333 800 Intake: Intake, IV Titration 1818.333 Amount D5-0.45% NaCl with KCl 1625 20Meq/l 1,000 ml @ 125 mls/hr IV .Q8H [facility] Rx#: [id number] Ropivacaine 250 mg 193.333 Hydromorphone (Pf) 5 mg In Sodium Chloride 0.9% 200 ml @ Per Protocol EPIDURAL .Q0M PRN Rx#: [id number] Oral 800 Output: Urine 1999 1550 Uretheral ([place]acruz) 900 Other: Voiding Method Indwelling Catheter Indwelling Catheter Indwelling Catheter # Voids 2 - Exam Having: Soft, nondistended, minimal incisional tenderness - Labs CBC & Chem 7: 08/28/18 06:06 08/28/18 06:06 Labs: Abnormal Lab Results - Last 24 Hours (Table) 08/28/18 Range/Units 06:06 BUN 2 L (7-17) mg/dL Assessment and Plan (1) Carcinoid tumor of colon Narrative/Plan: Will increase diet to a low fiber. Ambulate. [place] for pain. Current Visit: Yes Status: Acute Code(s): D3A.029 - BENIGN CARCINOID TUMOR OF THE LARGE INTESTINE, UNSP PORTION SNOMED Code(s): 602303766
[2018-08-28] MEDS: LACTATED RINGERS 1,000 ML IV SCH (15:38)
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
[2018-08-28] MEDS: FAMOTIDINE 20 MG TAB PO SCH (20:21)
[2018-08-28] MEDS: HYDROcodone/APAP 5-325MG 1 EACH TAB PO PRN (20:21)
[2018-08-28] MEDS: ZOLPIDEM 10 MG TAB PO SCH (23:29)
[2018-08-29] MEDS: HYDROmorphone 1 MG/ML 1 ML SYRINGE IVP PRN ×3 (04:58→15:50)
[2018-08-29] MEDS: HYDROcodone/APAP 5-325MG 1 EACH TAB PO PRN ×4 (06:04→20:48)
[2018-08-29] MEDS: D5-0.45% NACL WITH KCL 20MEQ/L 1,000 ML IV SCH ×3 (08:08→20:42)
[2018-08-29] MEDS: ALBUTEROL NEBULIZED 2.5 MG/3 ML INHALATION PRN ×2 (08:30→20:32)
[2018-08-29] MEDS: ALVIMOPAN 12 MG CAPSULE PO SCH ×2 (09:41→20:42)
[2018-08-29] MEDS: HEPARIN SODIUM,PORCINE 5,000 UNIT/ML 1 ML VIAL SQ SCH ×3 (09:41→23:58)
[2018-08-29] MEDS: FAMOTIDINE 20 MG TAB PO SCH ×2 (09:41→20:42)
[2018-08-29] MEDS: SERTRALINE 100 MG TAB PO SCH (09:41)
[2018-08-29] MEDS: LACTATED RINGERS 1,000 ML IV SCH (11:42)
--- NOTE | 2018-08-29 13:20 | P.PN ---
Subjective Progress Note Date: 08/29/18 Principal diagnosis: Carcinoid of cecum Patient had some crampy abdominal pain last night. Improved at this time. Pain currently 2 out of 10. She is afebrile. She did have a small bowel movement. She is passing flatus. Appetite is slightly improved. Objective - Vital Signs Vital signs: Vital Signs Temp 98.8 F 08/29/18 07:19 Pulse 80 08/29/18 08:43 Resp 20 08/29/18 08:30 BP 122/81 08/29/18 07:19 Pulse Ox 98 08/29/18 08:30 Intake & Output 08/28/18 08/29/18 08/29/18 18:59 06:59 18:59 Intake Total 1999 1999 59 Output Total 2300 Balance -300 1999 596 Weight 83.915 kg Intake: IV 2000 D5-0.45% NaCl with KCl 2000 20Meq/l 1,000 ml @ 125 mls/hr IV .Q8H [facility] Rx#: [id number] Intake, IV Titration 1000 Amount D5-0.45% NaCl with KCl 1000 20Meq/l 1,000 ml @ 125 mls/hr IV .Q8H [facility] Rx#: [id number] Oral 800 596 Other 200 Output: Urine 2300 Uretheral ([place]) 500 Other: Voiding Method Indwelling Catheter # Voids 3 # Bowel Movements 1 1 - Exam Abdomen: Soft, nondistended, mild incisional tenderness, dressing clean and dry - Labs CBC & Chem 7: 08/28/18 06:06 08/28/18 06:06 Assessment and Plan (1) Carcinoid tumor of colon Narrative/Plan: Decrease IV fluid rate. Continue low fiber diet. Will add Toradol for pain control. Repeat labs tomorrow. Current Visit: Yes Status: Acute Code(s): D3A.029 - BENIGN CARCINOID TUMOR OF THE LARGE INTESTINE, UNSP PORTION SNOMED Code(s): 858811968
[2018-08-29] MEDS ORDERED: HYDROmorphone 0.5 MG/0.5 ML SYRINGE IVP PRN (14:49)
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
[2018-08-29] MEDS: KETOROLAC 30 MG/ML 1 ML VIAL IVP SCH ×2 (17:34→23:58)
[2018-08-29] MEDS: ZOLPIDEM 10 MG TAB PO SCH (20:42)
[2018-08-30 02:53] VITALS: PULSE 79; RESP 16; TEMP 98.1
[2018-08-30] MEDS: KETOROLAC 30 MG/ML 1 ML VIAL IVP SCH ×2 (05:22→11:58)
[2018-08-30] MEDS: HYDROcodone/APAP 5-325MG 1 EACH TAB PO PRN ×3 (05:25→13:42)
[2018-08-30] MEDS: D5-0.45% NACL WITH KCL 20MEQ/L 1,000 ML IV SCH (05:46)
[2018-08-30 07:46] VITALS: BP 124/70
[2018-08-30 08:21] LABS: Basophils % (A) 0 %; Eosinophils # (A) 0.5 k/uL (0-0.7); Eosinophils % (A) 8 %; Lymphocytes # (A) 0.9 k/uL (1.0-4.8); Lymphocytes % (A) 13 %; MCH 30.8 pg (25.0-35.0); MCHC 33.3 g/dL (31.0-37.0); MCV 92.2 fL (80.0-100.0); Monocytes # (A) 0.4 k/uL (0-1.0); Monocytes % (A) 6 %; Neutrophils # (A) 4.6 k/uL (1.3-7.7); Neutrophils % (A) 71 %; Platelet Count 343 k/uL (150-450); RBC 4.23 m/uL (3.80-5.40); RDW 13.1 % (11.5-15.5); WBC 6.5 k/uL (3.8-10.6)
[2018-08-30 08:37] LABS: Anion Gap 6 mmol/L; Blood Urea Nitrogen 8 mg/dL (7-17); Calcium 9.4 mg/dL (8.4-10.2); Carbon Dioxide 30 mmol/L (22-30); Chloride 106 mmol/L (98-107); Glucose 100 mg/dL (74-99); Potassium 5.5 mmol/L (3.5-5.1); Sodium 142 mmol/L (137-145)
[2018-08-30] MEDS ORDERED: SODIUM CHLORIDE 0.9% 1,000 ML IV SCH (09:15)
[2018-08-30] MEDS: FAMOTIDINE 20 MG TAB PO SCH (09:52)
[2018-08-30] MEDS: SERTRALINE 100 MG TAB PO SCH (09:52)
[2018-08-30] MEDS: ALVIMOPAN 12 MG CAPSULE PO SCH (09:52)
[2018-08-30] MEDS: HEPARIN SODIUM,PORCINE 5,000 UNIT/ML 1 ML VIAL SQ SCH (09:56)
--- NOTE | 2018-08-30 10:38 | P.DS ---
Providers Date of admission: 08/25/18 08:09 Expected date of discharge: 08/30/18 Attending physician: Héctor Hess Consults: 08/25/18 13:06 Consult Physician Routine Consulting Provider: Elsy Holbrook Consult Reason/Comments: Medical management Do you want consulting provider notified?: Yes Primary care physician: Ev Hess - Discharge Diagnosis(es) (1) Carcinoid tumor of colon Patient was admitted electively for a right hemicolectomy. Postoperatively the patient was started on a diet and kept on Entereg. The patient's bowel function returned relatively quickly. Some mild nausea. Pain was controlled initially with an epidural. That was eventually removed and the patient was switched over to oral pain meds and Toradol. Patient doing well today. She is tolerating her diet. She is having soft liquid stools. She would like to go home today. White blood cell count is normal. Final pathology pending. Incision is clean and dry. Will discharge home with plans for outpatient follow -up in 1 week. Current Visit: Yes Status: Acute Plan - Discharge Summary Discharge Rx Participant: No New Discharge Prescriptions: New HYDROcodone/APAP 5-325MG [[place] 5-325] 1 each PO Q4HR PRN #18 tab PRN Reason: Pain Continue Zolpidem [Ambien] 10 mg PO HS Sertraline [Zoloft] 100 mg PO DAILY Acetaminophen/Diphenhydramine [Tylenol PM Extra Strength] 2 tab PO HS Albuterol Inhaler [Ventolin Hfa Inhaler] 1 - 2 puff INHALATION RT-Q6H PRN PRN Reason: Shortness Of Breath Discharge Medication List Sertraline [Zoloft] 100 mg PO DAILY 02/26/15 [History] Zolpidem [Ambien] 10 mg PO HS 02/26/15 [History] Acetaminophen/Diphenhydramine [Tylenol PM Extra Strength] 2 tab PO HS 07/04/18 [ History] Albuterol Inhaler [Ventolin Hfa Inhaler] 1 - 2 puff INHALATION RT-Q6H PRN [History] HYDROcodone/APAP 5-325MG [[place] 5-325] 1 each PO Q4HR PRN #18 tab 08/30/18 [Rx] Follow up Appointment(s)/Referral(s): Héctor Hess MD [Medical Doctor] - 1 Week Ev Hess MD [Primary Care Provider] - 1 Week Activity/Diet/Wound Care/Special Instructions: You may shower. No soaking or tub baths No lifting over 10 pounds Light activity until evaluated at your follow up appointment with Dr. Hess No driving while taking [place]
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
--- NOTE | 2018-09-05 08:08 | CDI ---
Documentation Clarification Form Date: 09/05/18 From: Claire Facundo Gabrielle Celio, [employer] Hours-8:30 am & 5 pm MWilman Admit Date: 08/25/2018 8:09:00 AM Patient Name: Melissa Stein Visit Number: [id number] Discharge Date: 08/30/2018 2:05:00 PM ATTENTION: The Clinical Documentation Specialists (CDI) and [facility] Coding Staff appreciate your assistance in clarifying documentation. Please respond to the clarification below the line at the bottom and electronically sign. The CDI & [facility] Coding staff will review the response and follow-up if needed. Please note: Queries are made part of the Legal Health Record. If you have any questions, please contact the author of this message via ITS. Dr. Héctor Hess The final diagnosis of the pathology report states: classic carcinoid tumor of the cecum perforating the muscularis propria and involving pericecal fat. 3 of 19 lymph nodes involved by carcinoid tumor. Documentation states: carcinoid tumor of cecum Treatment: Right colectomy, lysis of adhesions, repair umbilical hernia In your professional opinion, do you agree with the pathology report? Malignant carcinoid carcinoma of cecum with mets to mesentric lymph Malignant carcinoid carcinoma of cecum Other (please specify) Unable to determine Please help me understand why I need to agree with the pathology report. That being said would characterize as malignant carcinoid of cecum with metastases to regional mesenteric lymph nodes MTDD
== END 2018-08-30 14:05 | disposition home or self-care (01) | DRG 330 ==
LOC: 2ORMAIN 08:09 → 4SSUR 12:30
PROVIDERS: ADMIT Surgery; ATTEND Surgery
PROC: 0WQF0ZZ Repair Abdominal Wall, Open Approach (ICD-10-PCS; 2018-08-25)
PROC: 0DTF0ZZ Resection of Right Large Intestine, Open Approach (ICD-10-PCS; principal; 2018-08-25 10:00)
DX: C7A.021 Malignant carcinoid tumor of the cecum (principal); C7B.09 Secondary carcinoid tumors of other sites; E87.5 Hyperkalemia; D64.9 Anemia, unspecified; K42.9 Umbilical hernia without obstruction or gangrene; F32.9 Major depressive disorder, single episode, unspecified; F41.9 Anxiety disorder, unspecified; G89.21 Chronic pain due to trauma; K66.0 Peritoneal adhesions (postprocedural) (postinfection); M54.9 Dorsalgia, unspecified; M19.90 Unspecified osteoarthritis, unspecified site; J45.909 Unspecified asthma, uncomplicated; I83.90 Asymptomatic varicose veins of unspecified lower extremity; K59.00 Constipation, unspecified; H91.90 Unspecified hearing loss, unspecified ear; Z79.899 Other long term (current) drug therapy; Z87.11 Personal history of peptic ulcer disease; Z90.710 Acquired absence of both cervix and uterus; Z87.442 Personal history of urinary calculi; Z98.891 History of uterine scar from previous surgery; Z87.440 Personal history of urinary (tract) infections; Z87.81 Personal history of (healed) traumatic fracture; Z88.5 Allergy status to narcotic agent; Z88.8 Allergy status to other drugs, medicaments and biological substances; Z82.5 Family history of asthma and other chronic lower respiratory diseases; Z82.49 Family history of ischemic heart disease and other diseases of the circulatory system; Z83.49 Family history of other endocrine, nutritional and metabolic diseases; Z82.79 Family history of other congenital malformations, deformations and chromosomal abnormalities
CPT/HCPCS: 80048; 85025; 86850; 86900; 86901; 88309; 88311; 88342; 94640; 94760

== ENCOUNTER → 2018-10-14 | Outpatient (CLI) | payer BC ==
[2018-10-14 09:15] LABS: Basophils % (A) 0 %; Eosinophils # (A) 0.4 k/uL (0-0.7); Eosinophils % (A) 7 %; HCT 43.9 % (34.0-46.0); HGB 14.2 gm/dL (11.4-16.0); Lymphocytes # (A) 1.7 k/uL (1.0-4.8); Lymphocytes % (A) 28 %; MCH 29.3 pg (25.0-35.0); MCHC 32.4 g/dL (31.0-37.0); MCV 90.4 fL (80.0-100.0); Mean Platelet Volume 6.8; Monocytes # (A) 0.3 k/uL (0-1.0); Monocytes % (A) 5 %; Neutrophils # (A) 3.5 k/uL (1.3-7.7); Neutrophils % (A) 58 %; Platelet Count 326 k/uL (150-450); RBC 4.85 m/uL (3.80-5.40); WBC 5.9 k/uL (3.8-10.6)
[2018-10-14 18:01] LABS: Albumin 4.6 g/dL (3.80-4.90); Albumin/Globulin Ratio 2.19 (1.60-3.17); Calcium 9.8 mg/dL (8.7-10.3); Globulin 2.1 g/dL (1.6-3.3); Potassium 4.8 mmol/L (3.5-5.5); Total Bilirubin 0.4 mg/dL (0.2-1.2); Total Protein 6.7 g/dL (6.2-8.2)
[2018-10-17 21:33] LABS: Chromogranin A 45 ng/mL (0-95)
== END | disposition home or self-care (01) ==
LOC: LABWHC1 08:49
PROVIDERS: ATTEND Internal Medicine Hematology & Oncology
DX: C7A.021 Malignant carcinoid tumor of the cecum (principal); C7A.098 Malignant carcinoid tumors of other sites; N18.9 Chronic kidney disease, unspecified; D63.1 Anemia in chronic kidney disease
CPT/HCPCS: 36415; 80053; 84260; 85025; 86316

== ENCOUNTER → 2018-10-19 | Outpatient (CLI) | payer BC ==
--- NOTE | 2018-10-19 13:43 | CT ---
EXAMINATION TYPE: CT ChestAbdPelvis w con DATE OF EXAM: 10/19/2018 COMPARISON: 07/24/2018 and 03/01/2018 HISTORY: 43-year-old female with malignant carcinoid tumor cecum TECHNIQUE: Contiguous axial scanning of the chest, abdomen, and pelvis performed with IV Contrast, pa tient injected with 100 ml mL of Isovue 300. Delayed images through the kidneys were obtained. Gong l/sagittal reconstructions performed. CT DLP: 1544.80 mGycm Automated exposure control for dose reduction was used. FINDINGS: CHEST: Heart normal size without pericardial effusion. Aorta normal caliber with conventional arch vessel branching anatomy. No thoracic lymphadenopathy by CT size criteria. Evaluation of the lungs shows no consolidation or pleural effusion. ABDOMEN: No focal liver lesion or biliary ductal dilatation. Portal venous system is patent. Gallbladder, adrenal glands, kidneys, spleen with hilar splenule, and pancreas appear within normal l imits. No dilated small bowel, free fluid, or free air. Interval post surgical changes along the anterior abdominal wall with partial right hemicolectomy and ileocolonic anastomosis at the level of the hepatic flexure. Interval resection of the patient's cec al mass. The previously seen right lower quadrant lymphadenopathy has also resolved There is some subtle soft tissue nodularity in the right paramedian mid abdominal mesentery measuring 1.8 x 0.9 cm, refer to axial image 75 that could represent some post surgical changes or a lymph nod e. This should be reassessed at short interval follow-up. No other lymphadenopathy seen. Oral contrast has progressed to the rectum. Pelvis: Bladder urine distended. Uterus surgically absent. Both ovaries are visualized. No abnormal fluid col lection in the pelvis or pelvic lymphadenopathy. Bones: Mild degenerative spurring of the hips. No osseous destructive process. IMPRESSION: 1. INTERVAL RESECTION OF THE PATIENT'S CECAL MASS WITH PARTIAL RIGHT HEMICOLECTOMY AND ILEOCOLONIC AN ASTOMOSIS AT THE LEVEL OF THE HEPATIC FLEXURE. 2. IN THE PREVIOUS RIGHT LOWER QUADRANT MESENTERIC LYMPHADENOPATHY HAS ALSO RESOLVED. 3. SUBTLE SOFT TISSUE NODULARITY MEASURING 1.8 X 0.9 CM IN THE RIGHT PARAMEDIAN MID ABDOMINAL MESENTE RY. THIS COULD REPRESENT POSTSURGICAL CHANGE OR A NEW PROMINENT LYMPH NODE. SURVEILLANCE FOLLOW-UP IS RECOMMENDED.
== END | disposition home or self-care (01) ==
LOC: RADCTMAIN 09:35
PROVIDERS: ATTEND Internal Medicine Hematology & Oncology
DX: K63.89 Other specified diseases of intestine (principal); R19.07 Generalized intra-abdominal and pelvic swelling, mass and lump; C7A.021 Malignant carcinoid tumor of the cecum; Z90.49 Acquired absence of other specified parts of digestive tract; Z88.5 Allergy status to narcotic agent; Z88.8 Allergy status to other drugs, medicaments and biological substances
CPT/HCPCS: 71260; 74177; Q9967

== ENCOUNTER → 2018-12-26 | Outpatient (CLI) | payer BC ==
--- NOTE | 2018-12-26 10:50 | MM ---
Reason for exam: screening (asymptomatic). Last mammogram was performed 7 months ago. History: Patient history of colon cancer. Family history of breast cancer in aunt at age 33. Benign MG stereo VAD BX LT of the left breast, November 24, 2017. Physical Findings: A clinical breast exam by your physician is recommended on an annual basis and results should be correlated with mammographic findings. MG 3D Screening Mammo W/Cad Bilateral CC and MLO view(s) were taken. Prior study comparison: May 17, 2018, left breast MG 3d diag mammo w/cad LT. November 11, 2017, left breast MG 3d work up w/cad LT. There are scattered fibroglandular densities. Previous mammotome biopsy in the left breast. No significant changes when compared with prior studies. ASSESSMENT: Negative, BI-RAD 1 RECOMMENDATION: Routine screening mammogram of both breasts in 1 year.
== END | disposition home or self-care (01) ==
LOC: RADMAMWWP 06:48
PROVIDERS: ATTEND Family Medicine
DX: Z12.31 Encounter for screening mammogram for malignant neoplasm of breast (principal)
CPT/HCPCS: 77063; 77067

== ENCOUNTER → 2019-01-18 | Outpatient (CLI) | payer BC ==
[2019-01-18 15:12] LABS: Blood Urea Nitrogen 17 mg/dL (7-17)
--- NOTE | 2019-01-18 18:50 | CT ---
EXAMINATION TYPE: CT ChestAbdPelvis w con DATE OF EXAM: 01/18/2019 INDICATION: Malignant carcinoid tumor of the cecum COMPARISON: 10/19/2018 CT DLP: 1926 mGycm CONTRAST: Performed with Oral Contrast and with IV Contrast, patient injected with 100 mL of Isovue 300. TECHNIQUE: Axial images at 5 mm thick sections. Reconstructed images in the coronal plane. Delayed images through the kidneys. FINDINGS: CT CHEST: Portion of the thyroid visualized is normal. No suspicious lung nodules or focal infiltrates are present. No enlarged mediastinal or hilar adenopathy is evident. The ascending aorta diameter at the level of the main pulmonary artery is 3.2 cm. The main pulmonary artery diameter at the bifurcation is 2.[address] ABDOMEN: Liver: Normal Spleen: Normal Pancreas: Normal Adrenal glands: The adrenal glands are normal. Gallbladder: Normal Kidneys: No masses are evident. No hydronephrosis is present. No cysts are present. Delayed images were obtained through the kidneys, which remain unremarkable. Aorta: Vascular calcification is within the aorta. Inferior vena cava: Normal. The area of mesenteric increased density which may have been a lymph node previously near the surgica l site discussed on the previous examination has diminished in size and diminished density within the mesentery bases could be resolving lymph node or surgical change. No enlarged lymphadenopathy is ally dent. CT PELVIS: Loops of bowel within the abdomen and pelvis are normal. Previous right hemicolectomy is evident. There is no stenosis is evident at the anastomosis in the right upper quadrant. There are loops of b owel which are incompletely distended or lack oral contrast limiting their evaluation. Appendix: Not present. Urinary bladder: Normal. Genitourinary structures: There is a 3.3 cm cyst on the left ovary. Vaginal cuff region appears unrem arkable. Right adnexa appears normal. No free fluid is within the pelvis. Osseous structures: No suspicious lytic or sclerotic lesions. IMPRESSIONS: 1. No suspicious changes to suggest metastatic carcinoid tumor. 2. 3.3 cm left ovarian cyst. 3. Probable resolving mesenteric lymph node or postsurgical change at the right paramedian mesentery.
== END | disposition home or self-care (01) ==
LOC: RADCTMAIN 13:31
PROVIDERS: ATTEND Internal Medicine Hematology & Oncology
DX: N83.202 Unspecified ovarian cyst, left side (principal); C7A.021 Malignant carcinoid tumor of the cecum; Z88.5 Allergy status to narcotic agent; Z88.8 Allergy status to other drugs, medicaments and biological substances
CPT/HCPCS: 82565; 84520; 71260; 74177; 36415; Q9967

== ENCOUNTER → 2019-06-01 | Outpatient (CLI) | payer BC ==
[2019-06-01 09:37] LABS: African American GFR (CKD) >90 (>60 ml/min/1.73 sqM); Blood Urea Nitrogen 11 mg/dL (7-17)
--- NOTE | 2019-06-01 11:27 | CT ---
EXAMINATION TYPE: CT brain wo/w con DATE OF EXAM: 06/01/2019 COMPARISON: CT brain September 14, 2011. HISTORY: Carcinoid tumor CT DLP: 1082.30 mGycm. Automated Exposure Control for Dose Reduction was Utilized. TECHNIQUE: CT scan of the head is performed without and with IV Contrast, patient injected with 100 ml mL of Isovue 300. FINDINGS: Noncontrast images show no acute intracranial hemorrhage or midline shift. The ventricles and sulci are within normal limits in size. Smith-white matter differentiation is maintained. Postcon trast images show no suspicious enhancing intraparenchymal mass. There is mucous retention cyst or po lyp or eccentric thickening in the left maxillary sinus posterior left lateral aspect. Patchy depende nt fluid in the posterior right sphenoid sinus are present surrounding a larger mucous retention cyst or polyp. Globes are intact bilaterally. IMPRESSION: Some Bilateral Maxillary sinus disease otherwise unremarkable study.
--- NOTE | 2019-06-01 11:51 | CT ---
EXAMINATION TYPE: CT ChestAbdPelvis w con DATE OF EXAM: 06/01/2019 COMPARISON: CT chest abdomen and pelvis January 18, 2019 and older CTs HISTORY: Carcinoid tumor CT DLP: 1931.60 mGycm. Automated Exposure Control for Dose Reduction was Utilized. CONTRAST: CT scan of the thorax, abdomen and pelvis is performed with oral and with IV Contrast, patient inject ed with 100 ml mL of Isovue 300. FINDINGS: LUNGS: The lungs are grossly clear, there is no concerning parenchymal mass or nodule identified. T here is no pleural effusion or pneumothorax seen. The tracheobronchial tree is patent. MEDIASTINUM: There are no greater than 1 cm hilar or mediastinal lymph nodes. No cardiomegaly or pe ricardial effusion is seen. LIVER/GB: No significant abnormality is appreciated. PANCREAS: No significant abnormality is seen. SPLEEN: No significant abnormality is seen. ADRENALS: No significant abnormality is seen. KIDNEYS: No significant abnormality is seen. BOWEL: No significant abnormality is seen. GENITAL ORGANS: Uterus is surgically absent. Remnant ovaries are within normal limits seen best axial image 98. LYMPH NODES: No new greater than 1cm abdominal or pelvic lymph nodes are appreciated. No new suspicio us mesenteric masses are present. Subcentimeter nodularity right mid abdomen axial image 73 is less p rominent than most recent studies. OSSEOUS STRUCTURES: No significant abnormality is seen. OTHER: Overlying vertical scar is present. Small fat-containing ventral wall hernia along surgical sc ar axial image 84 IMPRESSION: No obvious new mass or adenopathy to suggest carcinoid neoplastic recurrence.
== END | disposition home or self-care (01) ==
LOC: RADCTMAIN 08:52
PROVIDERS: ATTEND Internal Medicine Hematology & Oncology
DX: J32.0 Chronic maxillary sinusitis (principal); C7A.021 Malignant carcinoid tumor of the cecum; Z88.5 Allergy status to narcotic agent; Z88.8 Allergy status to other drugs, medicaments and biological substances
CPT/HCPCS: 82565; 84520; 70470; 71260; 74177; 36415; Q9967

== ENCOUNTER → 2019-07-20 | Outpatient (CLI) | payer BC ==
[2019-07-20 10:55] LABS: Basophils % (A) 0 %; Eosinophils # (A) 0.3 k/uL (0-0.7); Eosinophils % (A) 4 %; HGB 14.6 gm/dL (11.4-16.0); Lymphocytes # (A) 1.5 k/uL (1.0-4.8); Lymphocytes % (A) 22 %; MCH 30.7 pg (25.0-35.0); MCHC 33.9 g/dL (31.0-37.0); MCV 90.7 fL (80.0-100.0); Mean Platelet Volume 7.8; Monocytes # (A) 0.3 k/uL (0-1.0); Monocytes % (A) 5 %; Neutrophils # (A) 4.8 k/uL (1.3-7.7); Neutrophils % (A) 67 %; Platelet Count 312 k/uL (150-450); RBC 4.74 m/uL (3.80-5.40); RDW 12.5 % (11.5-15.5); WBC 7.2 k/uL (3.8-10.6)
[2019-07-20 13:41] LABS: Erythrocyte Sedimentation Rate 12 mm/hr (0-20)
[2019-07-20 16:57] LABS: C Reactive Protein 2.3 mg/dL (0.0-0.8)
[2019-07-23 12:27] LABS: ANA Pattern Speckled
== END | disposition home or self-care (01) ==
LOC: LABWHC1 09:41
PROVIDERS: ATTEND Family Medicine
DX: M25.562 Pain in left knee (principal); R53.83 Other fatigue
CPT/HCPCS: 36415; 84443; 85025; 85652; 86038; 86039; 86140; 86431

== ENCOUNTER → 2019-08-20 | Outpatient (CLI) | payer BC ==
[2019-08-20 09:10] LABS: Appearance,Urine Clear (Clear); Bilirubin,Urine Negative (Negative); Blood,Urine Negative (Negative); Color,Urine Yellow; Glucose,Urine (UA) Negative (Negative); Ketones,Urine Negative (Negative); Leukocyte Esterase,Urine Negative (Negative); Nitrite,Urine Negative (Negative); Protein,Urine Negative (Negative); Specific Gravity,Urine 1.021 (1.001-1.035); Urobilinogen,Urine <2.0 mg/dL (<2.0)
[2019-08-20 09:25] LABS: Basophils % (A) 1 %; Eosinophils # (A) 0.3 k/uL (0-0.7); Eosinophils % (A) 5 %; HCT 43.2 % (34.0-46.0); HGB 14.2 gm/dL (11.4-16.0); Lymphocytes # (A) 1.6 k/uL (1.0-4.8); Lymphocytes % (A) 23 %; MCH 30.2 pg (25.0-35.0); MCHC 32.9 g/dL (31.0-37.0); MCV 91.8 fL (80.0-100.0); Mean Platelet Volume 7.9; Monocytes # (A) 0.3 k/uL (0-1.0); Monocytes % (A) 4 %; Neutrophils # (A) 4.5 k/uL (1.3-7.7); Neutrophils % (A) 65 %; Platelet Count 317 k/uL (150-450); RDW 12.2 % (11.5-15.5); WBC 6.9 k/uL (3.8-10.6)
[2019-08-20 11:28] LABS: Erythrocyte Sedimentation Rate 12 mm/hr (0-20)
[2019-08-20 16:02] LABS: Protein, Total 6.4 g/dL (6.2-8.2)
[2019-08-20 16:34] LABS: African American GFR (CKD) 131.2 (60.0-200.0); Albumin 4.6 g/dL (3.80-4.90); Albumin/Globulin Ratio 2.56 (1.60-3.17); Anion Gap 4.7 mmol/L (4.00-12.00); BUN/Creat Ratio 16.67 Ratio (12.00-20.00); Calcium 9.5 mg/dL (8.7-10.3); Carbon Dioxide 27.3 mmol/L (21.6-31.8); Globulin 1.8 g/dL (1.6-3.3); Non-African American GFR(CKD) 113.2 (60.0-200.0); Potassium 4.5 mmol/L (3.5-5.5); Total Bilirubin 0.3 mg/dL (0.2-1.2); Total Protein 6.4 g/dL (6.2-8.2); Uric Acid 4.3 mg/dL (2.9-7.7)
[2019-08-20 17:54] LABS: Anti-DNA, DS unit <1.0 IU/mL; Anti-Smith Ab Interp NEGATIVE (NEGATIVE); Cardiolipin Ab IgG Interp NEGATIVE (NEGATIVE); Cardiolipin Ab IgM Interp NEGATIVE (NEGATIVE); Cardiolipin IgA Antibody 5.1 U/mL; Cyclic Citrull Pep IgG Unit <0.5 U/mL; Cyclic Citrullinated Pep IgG NEGATIVE (NEGATIVE); DNA Double-Stranded NEGATIVE (NEGATIVE); Scleroderma SC-70 Ab <0.2 AI
[2019-08-20 18:16] LABS: Hepatitis B Surface Antigen Non-Reactive (Non-Reactive); Hepatitis C IgG Antibody Non-Reactive (Non-Reactive)
[2019-08-21 10:01] LABS: Angiotensin-1 Converting Enz. 54 U/L (8-52)
[2019-08-21 10:03] LABS: Aldolase 4.4 U/L (1.2-7.6)
[2019-08-21 10:50] LABS: HLA B27 NEGATIVE
[2019-08-21 11:58] LABS: ANA Pattern Speckled; ANA Pattern 2 Nucleolar
[2019-08-21 12:27] LABS: Histone Antibody 0.7 UNITS (<1.0)
[2019-08-21 13:29] LABS: Albumin 3.67 g/dL (3.80-4.90); Gamma Globulin 0.87 g/dL (0.70-1.50)
[2019-08-21 13:33] LABS: APTT 44 Sec(s) (<43); APTT 1:1 Mix 40 Sec(s) (<43); Dilute Russell Viper Venom 43 Sec(s) (<44)
[2019-08-21 14:20] LABS: C-ANCA <1:20 Titer (<1:20)
== END ==
LOC: LABWHC1 08:34
PROVIDERS: ATTEND Internal Medicine Hematology & Oncology
DX: C7A.021 Malignant carcinoid tumor of the cecum (principal); C7A.098 Malignant carcinoid tumors of other sites; N18.9 Chronic kidney disease, unspecified; D63.1 Anemia in chronic kidney disease; M54.5 Low back pain; R76.8 Other specified abnormal immunological findings in serum
CPT/HCPCS: 36415; 80053; 81003; 82085; 82164; 82306; 82550; 83516; 83883; 84165; 84439; 84443; 84550; 85025; 85613; 85652; 85730; 85732; 86038; 86039; 86140; 86147; 86160; 86162; 86200; 86225; 86235; 86255; 86334; 86431; 86803; 86812; 87340

== ENCOUNTER → 2019-09-27 | Outpatient (CLI) | payer BC ==
[2019-09-27 09:40] LABS: African American GFR (CKD) >90 (>60 ml/min/1.73 sqM); Blood Urea Nitrogen 13 mg/dL (7-17); Non-African American GFR(CKD) >90 (>60 ml/min/1.73 sqM)
--- NOTE | 2019-09-27 11:53 | CT ---
EXAMINATION TYPE: CT ChestAbdPelvis w con DATE OF EXAM: 09/27/2019 COMPARISON: 06/01/2019 HISTORY: carcinoid tumor of small bowel CT DLP: 1917 mGycm CONTRAST: CT scan of the chest, abdomen and pelvis is performed with Oral Contrast and with IV Contrast, patien t injected with 100 mL of Isovue 300. CT Chest: LUNGS: The lungs are clear and free of infiltrate or atelectasis. No pulmonary nodule or mass is det ected. No pleural effusion or CT evidence of interstitial lung disease. MEDIASTINUM: Thoracic aorta is of normal caliber. The heart is not enlarged. No evidence for media stinal mass or adenopathy. HILAR STRUCTURES: No evidence for mass. No hilar adenopathy is appreciated. OTHER: No significant abnormality. CONTRAST CT ABDOMEN AND PELVIS FINDINGS: LIVER/GB: No calcified gallstones. Mild hepatic steatosis noted. No space occupying hepatic lesion . Biliary tree is of normal caliber. PANCREAS: No inflammation. No distinct mass. SPLEEN: No splenic enlargement. No lesion seen. ADRENALS: No nodule. No thickening. KIDNEYS/BLADDER: No hydronephrosis. No nephrolithiasis. No disctinct renal mass. BOWEL: Normal appendix. Normal bowel caliber. No inflammation. GENITAL ORGANS: Hysterectomy changes noted. 3 cm left ovarian cyst may be functional in nature. Right ovary is unremarkable. LYMPH NODES: No greater than 1cm abdominal or pelvic lymph nodes are appreciated. AORTA: No significant abnormality. OSSEOUS STRUCTURES: No significant abnormality is seen. OTHER: No significant additional abnormality is seen. IMPRESSION: 1. No evidence for new mass or recurrent disease. No adenopathy. 2. 3 cm left ovarian cyst may be functional in nature. 3. Mild hepatic steatosis.
== END | disposition home or self-care (01) ==
LOC: RADCTMAIN 09:00
PROVIDERS: ATTEND Internal Medicine Hematology & Oncology
DX: N83.202 Unspecified ovarian cyst, left side (principal); K76.0 Fatty (change of) liver, not elsewhere classified; C7A.098 Malignant carcinoid tumors of other sites; Z88.5 Allergy status to narcotic agent; Z88.8 Allergy status to other drugs, medicaments and biological substances
CPT/HCPCS: 82565; 84520; 71260; 74177; 36415; Q9967 ×2

== ENCOUNTER → 2020-03-28 | Outpatient (CLI) | payer BC ==
[2020-03-28 09:06] LABS: African American GFR (CKD) >90 (>60 ml/min/1.73 sqM); Blood Urea Nitrogen 11 mg/dL (7-17); Non-African American GFR(CKD) >90 (>60 ml/min/1.73 sqM)
--- NOTE | 2020-03-31 11:00 | CT ---
EXAMINATION TYPE: CT ChestAbdPelvis w con DATE OF EXAM: 03/28/2020 COMPARISON: Multiple prior comparison studies available, most recent CT chest abdomen pelvis 0. HISTORY: Carcinoid tumor. CT DLP: 1851.6 mGycm Automated exposure control for dose reduction was used. CONTRAST: CT scan of the chest, abdomen and pelvis is performed with Oral Contrast and with IV Contrast, patien t injected with 100 mL of Isovue M300. FINDINGS: LUNGS: Lungs are grossly clear. Benign-appearing 2 mm pleural-based nodule of the right lower lobe po steromedially (4:27), unchanged versus 07/24/2018 comparison. No concerning parenchymal mass or nodul e identified. No pleural effusion. No pneumothorax. The tracheobronchial tree is patent. MEDIASTINUM/SOFT TISSUES: No axillary, hilar, or mediastinal lymphadenopathy greater than 1 cm. Cardi ac size is normal. No pericardial effusion. No thoracic aortic aneurysm. LIVER: Normal. BILIARY SYSTEM: Normal. PANCREAS: Normal. SPLEEN: Normal. Splenule. ADRENALS: Normal. KIDNEYS: Normal. BOWEL: Right hemicolectomy postsurgical changes. Right upper quadrant anastomosis appears patent. No evidence of obstruction, thickening, or focal mass lesion. Appendix is surgically absent. PERITONEUM: No peritoneal thickening. No pneumoperitoneum or free fluid. LYMPH NODES: No lymphadenopathy. PELVIS: Urinary bladder normal. Status post hysterectomy. Interval resolution of the left ovarian cys t versus 09/27/2019 comparison. Follicular changes versus 2 adjacent functional cysts of the right ova ry, largest measuring up to 2.4 cm (3:99). VASCULATURE: No abdominal aortic aneurysm. MUSCULOSKELETAL: No aggressive osseous destructive lesions. IMPRESSION: 1. No evidence of recurrent or metastatic carcinoid tumor of the chest, abdomen, or pelvis. 2. Resolution of left ovarian cyst seen on 09/27/2019 comparison. Likely follicular changes versus sm all functional cysts of the right ovary on current exam.
== END | disposition home or self-care (01) ==
LOC: RADCTMAIN 08:25
PROVIDERS: ATTEND Internal Medicine Hematology & Oncology
DX: Z03.89 Encounter for observation for other suspected diseases and conditions ruled out (principal); C7A.021 Malignant carcinoid tumor of the cecum; Z88.5 Allergy status to narcotic agent; Z88.8 Allergy status to other drugs, medicaments and biological substances
CPT/HCPCS: 82565; 84520; 71260; 74177; 36415; Q9967 ×2

== ENCOUNTER 2020-04-15 08:51 | Day surgery (SDC) | payer BC ==
[2020-04-10 13:07] VITALS: BMI 38.3
[2020-04-15] MEDS ORDERED: LIDOCAINE 1% (10MG/ML) FOR IV START INTRADERMA PRN (09:03)
[2020-04-15] MEDS ORDERED: LACTATED RINGERS 1,000 ML IV SCH (09:03)
[2020-04-15 09:21] VITALS: TEMP 97.5
[2020-04-15] MEDS ORDERED: ONDANSETRON 4 MG/2 ML VIAL ONE (09:22)
[2020-04-15] MEDS ORDERED: MIDAZOLAM 2 MG/2 ML VIAL ONE (10:05)
[2020-04-15] MEDS ORDERED: fentaNYL (PF) 50 MCG/ML 2 ML AMP ONE (10:05)
[2020-04-15] MEDS ORDERED: LIDOCAINE 1% INJ 10MG/ML (20 ML MDV) ONE (10:05)
--- NOTE | 2020-04-15 10:11 | P.GSHP ---
History of Present Illness H&P Date: 04/15/20 Chief Complaint: GERD, carcinoid tumor, screening Patient is here today for upper and lower endoscopy. Patient with a history of carcinoid tumor of the cecum. Underwent right colectomy 1.5 years ago. Doing well since that time. Also with chronic reflux. Past Medical History Past Medical History: Asthma Additional Past Medical History / Comment(s): gastric ulcers, GI bleed History of Any Multi-Drug Resistant Organisms: None Reported Past Surgical History: Section, Hysterectomy, Orthopedic Surgery Additional Past Surgical History / Comment(s): ovarian cyst, femur, oral surgery Past Anesthesia/Blood Transfusion Reactions: No Reported Reaction Additional Past Anesthesia/Blood Transfusion Reaction / Comment(s): Hx of blood transfusion- no reaction Smoking Status: Never smoker - Past Family History Father Family Medical History: COPD, Hyperlipidemia, Hypertension Sister(s) Additional Family Medical History / Comment(s): heart disease @ 8 months, c ongenital Mother Family Medical History: Hyperlipidemia, Hypertension Medications and Allergies Home Medications Medication Instructions Recorded Confirmed Type Sertraline [Zoloft] 100 mg PO DAILY 02/26/15 04/10/20 History Zolpidem [Ambien] 10 mg PO HS 02/26/15 04/15/20 History Acetaminophen Tab [Tylenol Tab] 1,000 mg PO Q6HR PRN 04/10/20 04/10/20 History Ibuprofen/Diphenhydramine HCl 2 each PO HS 04/10/20 04/15/20 History [Advil Pm Liqui-Gels] Allergies Allergy/AdvReac Type Severity Reaction Status Date / Time ibuprofen AdvReac PAST Verified 04/15/20 09:07 HISTORY OF GI BLEED morphine AdvReac Rapid Verified 04/15/20 09:07 Heart Rate, "JITTERY", Nausea pregabalin [From Lyrica] AdvReac JITTERY, Verified 04/15/20 09:07 PALPITATIONS Surgical - Exam Vital Signs Temp Pulse Resp BP Pulse Ox 97.5 F L 81 17 148/94 98 04/15/20 09:20 04/15/20 09:20 04/15/20 09:20 04/15/20 09:20 04/15/20 09:20 Physical exam: General: Well-developed, well-nourished HEENT: Normocephalic, sclerae nonicteric Abdomen: Nontender, nondistended Extremities: No edema Neuro: Alert and oriented Assessment and Plan (1) Carcinoid tumor of colon Narrative/Plan: Will proceed with upper and lower endoscopy. Current Visit: No Status: Acute Code(s): D3A.029 - BENIGN CARCINOID TUMOR OF THE LARGE INTESTINE, UNSP PORTION SNOMED Code(s): 710052211
--- NOTE | 2020-04-15 10:28 | P.PCN ---
Date of Procedure: 04/15/20 Procedure(s) Performed: PREOPERATIVE DIAGNOSIS: GERD, carcinoid tumor POSTOPERATIVE DIAGNOSIS: Mild gastritis, normal colon PROCEDURE: 1. EGD with biopsy 2. Colonoscopy ANESTHESIA: MAC SURGEON: Héctor Hess M.D. SPECIMENS: Antrum ENDOSCOPIC PROCEDURE: The patient was on the endoscopy table in the left decubitus position. The Olympus gastroscope was inserted into the oropharynx and passed under direct visualization to the region of the third portion of the duodenum. From that point the scope was slowly withdrawn inspecting all surfaces carefully. There were no neoplastic inflammatory or polypoid lesions throughout the duodenum. The pylorus was widely patent. The stomach was carefully inspected. There was mild gastritis present. A biopsy of the antrum took place to rule out H. pylori. Retroflexion revealed a normal hiatus. The esophagus was then carefully examined. There were no neoplastic inflammatory or polypoid lesions throughout the visualized esophagus. The patient was kept on the endoscopy table in the left decubitus position. The Olympus colonoscope was inserted into the anus and passed under direct visualization to the anastomosis. The anastomosis was widely patent. From that point the scope was slowly withdrawn inspecting all surfaces carefully. There were no neoplastic inflammatory or polypoid lesions throughout the transverse, descending, sigmoid and rectum. There was no visible diverticulosis noted. Digital rectal examination was normal. The patient was taken to the recovery room in stable condition per anesthesia guidelines. RECOMMENDATIONS: Await biopsy results. Continue antiacid therapy. Follow-up upper and lower endoscopy 5 years.
[2020-04-15 10:42] VITALS: BP 114/75; PULSE 82; RESP 16
== END 2020-04-15 11:05 ==
LOC: ORWHC2ENDO 08:51
PROVIDERS: ATTEND Surgery
DX: K21.9 Gastro-esophageal reflux disease without esophagitis (principal); K29.50 Unspecified chronic gastritis without bleeding; Z85.030 Personal history of malignant carcinoid tumor of large intestine; J45.909 Unspecified asthma, uncomplicated; F32.9 Major depressive disorder, single episode, unspecified; F41.9 Anxiety disorder, unspecified; Z87.19 Personal history of other diseases of the digestive system; Z90.710 Acquired absence of both cervix and uterus; Z98.891 History of uterine scar from previous surgery; Z82.49 Family history of ischemic heart disease and other diseases of the circulatory system; Z79.1 Long term (current) use of non-steroidal anti-inflammatories (NSAID); Z79.891 Long term (current) use of opiate analgesic; Z79.899 Other long term (current) drug therapy; Z88.6 Allergy status to analgesic agent; Z88.5 Allergy status to narcotic agent; Z88.8 Allergy status to other drugs, medicaments and biological substances; Z90.49 Acquired absence of other specified parts of digestive tract
CPT/HCPCS: 88305; 45378; 43239; J2250; J2405; J2001; J3010

== ENCOUNTER → 2020-05-15 | Outpatient (CLI) | payer BC ==
--- NOTE | 2020-05-16 11:01 | MM ---
Reason for exam: screening (asymptomatic). Last mammogram was performed 1 year and 5 months ago. History: Patient has history of colon cancer at age 42. Family history of breast cancer in maternal aunt at age 36. Benign MG stereo VAD BX LT of the left breast, November 24, 2017. Physical Findings: A clinical breast exam by your physician is recommended on an annual basis and results should be correlated with mammographic findings. MG 3D Screening Mammo W/Cad Bilateral CC and MLO view(s) were taken. Prior study comparison: December 26, 2018, bilateral MG 3d screening mammo w/cad. May 17, 2018, left breast MG 3d diag mammo w/cad LT. The breast tissue is heterogeneously dense. This may lower the sensitivity of mammography. There is no discrete abnormality. No significant changes when compared with prior studies. ASSESSMENT: Negative, BI-RAD 1 RECOMMENDATION: Routine screening mammogram of both breasts in 1 year.
== END | disposition home or self-care (01) ==
LOC: RADMAMWWP 07:10
PROVIDERS: ATTEND Family Medicine
DX: Z12.31 Encounter for screening mammogram for malignant neoplasm of breast (principal)
CPT/HCPCS: 77063; 77067

== ENCOUNTER → 2021-05-28 | Outpatient (CLI) | payer BC ==
--- NOTE | 2021-06-01 10:42 | MM ---
Reason for exam: screening (asymptomatic). Last mammogram was performed 1 year ago. History: Patient has history of colon cancer at age 42. Family history of breast cancer in maternal aunt at age 36. Benign MG stereo VAD BX LT of the left breast, November 24, 2017. Taking other hormone. Physical Findings: A clinical breast exam by your physician is recommended on an annual basis and results should be correlated with mammographic findings. MG 3D Screening Mammo W/Cad Bilateral CC and MLO view(s) were taken. Prior study comparison: May 15, 2020, bilateral MG 3d screening mammo w/cad. December 26, 2018, bilateral MG 3d screening mammo w/cad. There are scattered fibroglandular densities. There is no discrete abnormality. No significant changes when compared with prior studies. ASSESSMENT: Negative, BI-RAD 1 RECOMMENDATION: Routine screening mammogram of both breasts in 1 year.
== END | disposition home or self-care (01) ==
LOC: RADMAMWWP 07:29
PROVIDERS: ATTEND Family Medicine
DX: Z12.31 Encounter for screening mammogram for malignant neoplasm of breast (principal); Z80.3 Family history of malignant neoplasm of breast
CPT/HCPCS: 77063; 77067

== ENCOUNTER 2022-04-24 18:17 | Emergency (ER) | payer BC ==
[2022-04-24 18:34] VITALS: TEMP 98.1
[2022-04-24] MEDS ORDERED: HYDROmorphone 1 MG/ML 1 ML SYRINGE IVP STA (18:52)
[2022-04-24 19:23] LABS: Basophils % (A) 0 %; Eosinophils # (A) 0.5 k/uL (0-0.7); Eosinophils % (A) 6 %; HCT 44.6 % (34.0-46.0); HGB 14.3 gm/dL (11.4-16.0); Lymphocytes # (A) 1.7 k/uL (1.0-4.8); Lymphocytes % (A) 18 %; MCH 30.5 pg (25.0-35.0); MCHC 32.1 g/dL (31.0-37.0); Mean Platelet Volume 7.7; Monocytes # (A) 0.3 k/uL (0-1.0); Monocytes % (A) 4 %; Neutrophils # (A) 6.8 k/uL (1.3-7.7); Neutrophils % (A) 71 %; Platelet Count 329 k/uL (150-450); RBC 4.69 m/uL (3.80-5.40); RDW 12.6 % (11.5-15.5); WBC 9.5 k/uL (3.8-10.6)
--- NOTE | 2022-04-24 19:26 | ED ---
General Adult HPI - General Chief complaint: Chest Pain Stated complaint: chest pain Time Seen by Provider: 04/24/22 18:38 Source: patient, RN notes reviewed, old records reviewed Mode of arrival: ambulatory Limitations: no limitations - History of Present Illness Initial comments: 46-year-old female presenting for evaluation of lower chest pain and radiating from her back, right flank. Patient's symptoms present for the past 5 days. Patient is 9 days postop laparoscopic cholecystectomy. This was performed at [facility]. There has been no measured fever. There's been nausea without vomiting. Normal bowel movements. No cough or dyspnea. - Related Data Home Medications Medication Instructions Recorded Confirmed Sertraline [Zoloft] 100 mg PO DAILY 02/26/15 04/10/20 Zolpidem [Ambien] 10 mg PO HS 02/26/15 04/15/20 Acetaminophen Tab [Tylenol Tab] 1,000 mg PO Q6HR PRN 04/10/20 04/10/20 Ibuprofen/Diphenhydramine HCl 2 each PO HS 04/10/20 04/15/20 [Advil Pm Liqui-Gels] Previous Rx's Medication Instructions Recorded Colestipol [Colestid] 5 gm PO DAILY #30 packet 04/15/20 HYDROcodone/APAP 5-325MG [Ralph 1 tab PO Q6HR PRN #12 tab 04/24/22 5-325] Allergies Allergy/AdvReac Type Severity Reaction Status Date / Time ibuprofen AdvReac PAST Verified 04/24/22 18:31 HISTORY OF GI BLEED morphine AdvReac Rapid Verified 04/24/22 18:31 Heart Rate, "JITTERY", Nausea pregabalin [From Lyrica] AdvReac JITTERY, Verified 04/24/22 18:31 PALPITATIONS Review of Systems ROS Statement: Those systems with pertinent positive or pertinent negative responses have been documented in the HPI. ROS Other: All systems not noted in ROS Statement are negative. 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 History of Any Multi-Drug Resistant Organisms: None Reported Past Surgical History: Section, Hysterectomy, Orthopedic Surgery Additional Past Surgical History / Comment(s): ovarian cyst, femur, oral surgery Past Anesthesia/Blood Transfusion Reactions: No Reported Reaction Additional Past Anesthesia/Blood Transfusion Reaction / Comment(s): Hx of blood transfusion- no reaction Past Psychological History: Anxiety, Depression Smoking Status: Never smoker Past Alcohol Use History: None Reported Past Drug Use History: None Reported - Past Family History Father Family Medical History: COPD, Hyperlipidemia, Hypertension Sister(s) Additional Family Medical History / Comment(s): heart disease @ 8 months, congenital Mother Family Medical History: Hyperlipidemia, Hypertension General Exam Limitations: no limitations General appearance: alert, in no apparent distress Head exam: Present: atraumatic, normocephalic Eye exam: Present: normal appearance, PERRL ENT exam: Present: normal exam Neck exam: Present: normal inspection. Absent: tenderness, meningismus Respiratory exam: Present: normal lung sounds bilaterally. Absent: respiratory distress, wheezes Cardiovascular Exam: Present: regular rate, normal rhythm GI/Abdominal exam: Present: soft, normal bowel sounds, other (Incisions are appropriately healed now. Drainage, no erythema). Absent: tenderness, guarding, rebound Extremities exam: Present: normal inspection, normal capillary refill. Absent: pedal edema, calf tenderness Back exam: Absent: CVA tenderness (R), CVA tenderness (L) Neurological exam: Present: alert, oriented X3, CN II-XII intact. Absent: motor sensory deficit Psychiatric exam: Present: normal affect, normal mood Skin exam: Present: warm, dry, intact. Absent: cyanosis, diaphoretic Course Vital Signs 04/24/22 04/24/22 18:31 20:22 Temperature 98.1 F Pulse Rate 79 75 Respiratory 16 18 Rate Blood Pressure 150/86 130/76 O2 Sat by Pulse 100 99 Oximetry EKG Findings - EKG Comments: EKG Findings:: EKG: Sinus rhythm rate of 67, AR interval 167, QRS duration 87, QTC 412, no ST segment elevation, T-wave inversion in lead 3 Medical Decision Making - Medical Decision Making 46-year-old female with lower chest pain and upper abdominal pain status post laparoscopic cholecystectomy 9 days prior. Patient well-appearing with stable vitals. I did perform laboratory testing, EKG, chest x-ray, CT of the chest and pelvis. Chest x-ray is clear without acute findings, EKG is sinus rhythm without ST segment elevation or definitive signs of acute ischemia. Symptoms have been constant and present for the past 5 days and troponin is negative. I did suspect this is likely postoperative in nature patient had been on narcotic pain medication up until Tuesday and symptoms began on Tuesday. CT of the abdomen shows no complicating postsurgical issues. There is normal white blood cell count, stable hemoglobin, mild transaminitis. I did page the patient's surgeon at [facility] but did not receive a call back. Ultimately the patient wished to be discharged. I did offer observation for pain control and reevaluation. Patient prefers home with return parameters. She will be prescribed Ralph for pain. She will return with any worsening or changing symptoms. - Lab Data Result diagrams: 04/24/22 19:11 04/24/22 19:11 Lab Results 04/24/22 04/24/22 04/24/22 Range/Units 19:11 19:11 19:11 WBC 9.5 (3.8-10.6) k/uL RBC 4.69 (3.80-5.40) m/uL Hgb 14.3 (11.4-16.0) gm/dL Hct 44.6 (34.0-46.0) % MCV 95.0 (80.0-100.0) fL MCH 30.5 (25.0-35.0) pg MCHC 32.1 (31.0-37.0) g/dL RDW 12.6 (11.5-15.5) % Plt Count 329 (150-450) k/uL MPV 7.7 Neutrophils % 71 % Lymphocytes % 18 % Monocytes % 4 % Eosinophils % 6 % Basophils % 0 % Neutrophils # 6.8 (1.3-7.7) k/uL Lymphocytes # 1.7 (1.0-4.8) k/uL Monocytes # 0.3 (0-1.0) k/uL Eosinophils # 0.5 (0-0.7) k/uL Basophils # 0.0 (0-0.2) k/uL PT 10.1 (9.0-12.0) sec INR 0.9 (<1.2) APTT 23.6 (22.0-30.0) sec Sodium 139 (137-145) mmol/L Potassium 4.9 (3.5-5.1) mmol/L Chloride 102 (98-107) mmol/L Carbon Dioxide 26 (22-30) mmol/L Anion Gap 11 mmol/L BUN 15 (7-17) mg/dL Creatinine 0.65 (0.52-1.04) mg/dL Est GFR (CKD-EPI)AfAm >90 (>60 ml/min/1.73 sqM) Est GFR (CKD-EPI)NonAf >90 (>60 ml/min/1.73 sqM) Glucose 144 H (74-99) mg/dL Calcium 9.4 (8.4-10.2) mg/dL Magnesium 2.1 (1.6-2.3) mg/dL Total Bilirubin 0.5 (0.2-1.3) mg/dL AST 248 H (14-36) U/L ALT 206 H (4-34) U/L Alkaline Phosphatase 222 H (38-126) U/L Troponin I (0.000-0.034) ng/mL Total Protein 6.8 (6.3-8.2) g/dL Albumin 4.4 (3.5-5.0) g/dL Amylase 61 (30-110) U/L Lipase 129 (23-300) U/L 04/24/22 Range/Units 19:11 WBC (3.8-10.6) k/uL RBC (3.80-5.40) m/uL Hgb (11.4-16.0) gm/dL Hct (34.0-46.0) % MCV (80.0-100.0) fL MCH (25.0-35.0) pg MCHC (31.0-37.0) g/dL RDW (11.5-15.5) % Plt Count (150-450) k/uL MPV Neutrophils % % Lymphocytes % % Monocytes % % Eosinophils % % Basophils % % Neutrophils # (1.3-7.7) k/uL Lymphocytes # (1.0-4.8) k/uL Monocytes # (0-1.0) k/uL Eosinophils # (0-0.7) k/uL Basophils # (0-0.2) k/uL PT (9.0-12.0) sec INR (<1.2) APTT (22.0-30.0) sec Sodium (137-145) mmol/L Potassium (3.5-5.1) mmol/L Chloride (98-107) mmol/L Carbon Dioxide (22-30) mmol/L Anion Gap mmol/L BUN (7-17) mg/dL Creatinine (0.52-1.04) mg/dL Est GFR (CKD-EPI)AfAm (>60 ml/min/1.73 sqM) Est GFR (CKD-EPI)NonAf (>60 ml/min/1.73 sqM) Glucose (74-99) mg/dL Calcium (8.4-10.2) mg/dL Magnesium (1.6-2.3) mg/dL Total Bilirubin (0.2-1.3) mg/dL AST (14-36) U/L ALT (4-34) U/L Alkaline Phosphatase (38-126) U/L Troponin I <0.012 (0.000-0.034) ng/mL Total Protein (6.3-8.2) g/dL Albumin (3.5-5.0) g/dL Amylase (30-110) U/L Lipase (23-300) U/L Disposition Clinical Impression: Chest pain, Abdominal pain Disposition: HOME SELF-CARE Condition: Fair Instructions (If sedation given, give patient instructions): Chest Pain (ED), Abdominal Pain (ED) Additional Instructions: Please follow up with your surgeon, please return to the emergency department with any worsening or changing symptoms. Prescriptions: HYDROcodone/APAP 5-325MG [Ralph 5-325] 1 tab PO Q6HR PRN #12 tab PRN Reason: Pain Is patient prescribed a controlled substance at d/c from ED?: No Referrals: Ev Hess MD [Primary Care Provider] - 1-2 days Time of Disposition: 21:10
[2022-04-24 19:31] LABS: ALT 206 U/L (4-34); AST 248 U/L (14-36); African American GFR (CKD) >90 (>60 ml/min/1.73 sqM); Albumin 4.4 g/dL (3.5-5.0); Alkaline Phosphatase 222 U/L (38-126); Amylase 61 U/L (30-110); Anion Gap 11 mmol/L; Blood Urea Nitrogen 15 mg/dL (7-17); Calcium 9.4 mg/dL (8.4-10.2); Carbon Dioxide 26 mmol/L (22-30); Chloride 102 mmol/L (98-107); Glucose 144 mg/dL (74-99); Lipase 129 U/L (23-300); Magnesium 2.1 mg/dL (1.6-2.3); Non-African American GFR(CKD) >90 (>60 ml/min/1.73 sqM); Potassium 4.9 mmol/L (3.5-5.1); Sodium 139 mmol/L (137-145); Total Bilirubin 0.5 mg/dL (0.2-1.3); Total Protein 6.8 g/dL (6.3-8.2)
[2022-04-24 19:32] LABS: INR 0.9 (<1.2); Partial Thromboplastin Time 23.6 sec (22.0-30.0); Prothrombin Time 10.1 sec (9.0-12.0)
--- NOTE | 2022-04-24 19:48 | XR ---
EXAMINATION TYPE: XR chest 2V DATE OF EXAM: 04/24/2022 COMPARISON: NONE HISTORY: Chest pain TECHNIQUE: FINDINGS: Heart and mediastinum are normal. Lungs are clear. Diaphragm is normal. Bony thorax appears normal. IMPRESSION: Normal chest
[2022-04-24 20:23] VITALS: BP 130/76; PULSE 75; RESP 18
--- NOTE | 2022-04-24 20:40 | CT ---
EXAMINATION TYPE: CT ChestAbdPelvis w con DATE OF EXAM: 04/24/2022 COMPARISON: None HISTORY: chest pain [address] DLP: 1597 mGycm Automated exposure control for dose reduction was used. CONTRAST: Performed with IV Contrast, patient injected with 100 mL of Isovue 300. Images obtained from the thoracic inlet to the floor the pelvis with the IV contrast. The lungs are clear of infiltrate. No pleural effusion. Heart size is normal. No pericardial effusion . There is no mediastinal adenopathy. There are no hilar masses. Thoracic aorta is intact. No aneurys m. Liver spleen and stomach pancreas appear intact. There are clips from cholecystectomy. The bile duct are not dilated. There is no adrenal mass. Kidneys show normal size and contour. There is normal contrast opacificatio n of the kidneys. No hydronephrosis. Ureters are not dilated. There is no retroperitoneal adenopathy. Delayed images show normal renal excretion. No inguinal hernia. No free fluid in the pelvis. No pelvic mass. There is no mesenteric edema. No ascites or free air. No sign of a bowel obstruction. Bladder distend s smoothly. There is hysterectomy. There are surgical clips at the hepatic flexure of the colon. There appears to be right colon surgery and should be correlated with the history. This could be hemicolectomy. The thoracic and lumbar vertebra Intact. No compression fracture. Sternum is intact. Bony pelvis is i ntact. Hip joints appear normal. IMPRESSION: Previous surgery. No complicating process seen. No acute abnormality of the abdomen and pelvis. No ev idence of a bile leak. Negative CT scan of the chest.
[2022-04-24] MEDS ORDERED: HYDROcodone/APAP 7.5-325MG 1 EACH TAB PO ONE (21:09)
== END 2022-04-24 21:42 | disposition home or self-care (01) ==
LOC: EC 18:17
DX: R07.89 Other chest pain (principal); R10.9 Unspecified abdominal pain; J45.909 Unspecified asthma, uncomplicated; Z88.2 Allergy status to sulfonamides; Z88.6 Allergy status to analgesic agent; Z88.8 Allergy status to other drugs, medicaments and biological substances
CPT/HCPCS: 36415; 80053; 82150; 83690; 83735; 84484; 85025; 85610; 85730; 71046; 71260; 74177; 99285; 96374; J1170; Q9967

== ENCOUNTER → 2022-12-07 | Outpatient (CLI) | payer BC ==
--- NOTE | 2022-12-07 08:16 | US ---
EXAMINATION TYPE: US thyroid st tissue head/neck DATE OF EXAM: 12/07/2022 COMPARISON: NONE CLINICAL INDICATION: Female, 47 years old with history of R22.0 LOCALIZED SWELLING MASS AND LUMP, HEA D; fullness in midline neck GLAND SIZE: Right Lobe: 4.8 x 1.3 x 1.6 cm Overall Parenchyma: homogenous Left Lobe: 3.6 x 1.1 x 1.2 cm Overall Parenchyma: homogeneous Isthmus Thickness: 0.3 cm NODULES RIGHT: # of nodules measured on right: 0 LEFT: # of nodules measured on left: 0 ISTHMUS: # of nodules measured in the isthmus: 0 Bilateral neck scanned, no evidence of lymphadenopathy. IMPRESSION: No distinct abnormality appreciated. 2017 ACR TI-RADS LEVEL: *Highest TI-RADS level nodule reported
== END | disposition home or self-care (01) ==
LOC: RADUSWWP 06:42
PROVIDERS: ATTEND Family Medicine
DX: R22.0 Localized swelling, mass and lump, head (principal)
CPT/HCPCS: 76536

== ENCOUNTER 2023-08-24 09:26 | Emergency (ER) | payer BC, MEDICARE ==
[2023-08-24 09:31] VITALS: BP 141/95; PULSE 85; TEMP 98
--- NOTE | 2023-08-24 09:46 | ED ---
General Adult HPI - General Chief complaint: Urogenital Stated complaint: Abd Pain, urogenital Time Seen by Provider: 08/24/23 09:35 Source: patient Mode of arrival: ambulatory Limitations: no limitations - History of Present Illness Initial comments: Dictation was produced using [email or web address] dictation software. please excuse any grammatical, word or spelling errors. Chief Complaint: 47-year-old male presents emergency department for flank pain History of Present Illness: This is a 47-year-old female presents emergency department for flank pain. Patient has been having intermittent bouts since the last week or so. Over the last 2-3 days her pain has been constant. She rates it as a 5 out of 10. States that pain is colicky undulating nature. Patient does have a history of kidney stones. States that her symptoms that she is e xperiencing are very different from symptoms she is experienced in the past from kidney stones. Denies any fevers. She did see her primary care doctor and saw the nurse practitioner who prescribed her antibiotics despite not having any obvious findings of UTI on urinalysis. She did have negative cultures. She is had 2 days of Macrobid. The ROS documented in this emergency department record has been reviewed and confirmed by me. Those systems with pertinent positive or negative responses h ave been documented in the HPI. All other systems are other negative and/or noncontributory. - Related Data Home Medications Medication Instructions Recorded Confirmed Sertraline [Zoloft] 100 mg PO DAILY 02/26/15 04/10/20 Zolpidem [Ambien] 10 mg PO HS 02/26/15 04/15/20 Acetaminophen Tab [Tylenol Tab] 1,000 mg PO Q6HR PRN 04/10/20 04/10/20 Ibuprofen/Diphenhydramine HCl 2 each PO HS 04/10/20 04/15/20 [Advil Pm Liqui-Gels] Previous Rx's Medication Instructions Recorded Colestipol [Colestid] 5 gm PO DAILY #30 packet 04/15/20 HYDROcodone/APAP 5-325MG [[place] 1 tab PO Q6HR PRN #12 tab 04/24/22 5-325] Allergies Allergy/AdvReac Type Severity Reaction Status Date / Time ibuprofen AdvReac PAST Verified 08/24/23 09:32 HISTORY OF GI BLEED morphine AdvReac Rapid Verified 08/24/23 09:32 Heart Rate, "JITTERY", Nausea pregabalin [From Lyrica] AdvReac JITTERY, Verified 08/24/23 09:32 PALPITATIONS Review of Systems ROS Statement: Those systems with pertinent positive or pertinent negative responses have been documented in the HPI. ROS Other: All systems not noted in ROS Statement are negative. 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 History of Any Multi-Drug Resistant Organisms: None Reported Past Surgical History: Section, Hysterectomy, Orthopedic Surgery Additional Past Surgical History / Comment(s): ovarian cyst, femur, oral surgery Past Anesthesia/Blood Transfusion Reactions: No Reported Reaction Additional Past Anesthesia/Blood Transfusion Reaction / Comment(s): Hx of blood transfusion- no reaction Past Psychological History: Anxiety, Depression Smoking Status: Never smoker Past Alcohol Use History: None Reported Past Drug Use History: None Reported - Past Family History Father Family Medical History: COPD, Hyperlipidemia, Hypertension Sister(s) Additional Family Medical History / Comment(s): heart disease @ 8 months, congenital Mother Family Medical History: Hyperlipidemia, Hypertension General Exam - General Exam Comments Initial Comments: PHYSICAL EXAM: General Impression: Alert and oriented x3, not in acute distress HEENT: Normocephalic atraumatic, extra-ocular movements intact, pupils equal and reactive to light bilaterally, mucous membranes moist. Cardiovascular: Heart regular rate and rhythm Chest: Able to complete full sentences, no retractions, no tachypnea Abdomen: abdomen soft, non-tender, non-distended, no organomegaly Musculoskeletal: Pulses present and equal in all extremities, no peripheral edema Motor: no focal deficits noted Neurological: CN II-XII grossly intact, no focal motor or sensory deficits noted Skin: Intact with no visualized rashes Psych: Normal affect and mood Limitations: no limitations Course Vital Signs 08/24/23 09:29 Temperature 98.0 F Pulse Rate 85 Respiratory 18 Rate Blood Pressure 141/95 O2 Sat by Pulse 98 Oximetry Medical Decision Making - Medical Decision Making Was pt. sent in by a medical professional or institution (, PA, MASONRY CONTRACTOR, urgent care, hospital, or retirement...) When possible be specific @ -No Did you speak to anyone other than the patient for history (EMS, parent, family, police, friend...)? What history was obtained from this source @ -No Did you review nursing and triage notes (agree or disagree)? Why? @ -I reviewed and agree with nursing and triage notes Were old charts reviewed (outside hosp., previous admission, EMS record, old EKG, old radiological studies, urgent care reports/EKG's, retirement records)? Report findings @ -No old charts were reviewed Differential Diagnosis (chest pain, altered mental status, abdominal pain women, abdominal pain men, vaginal bleeding, musculoskeletal, weakness, fever, dyspnea, syncope, headache, dizziness, GI bleed, back pain, seizure, CVA, palpatations, mental health)? @ -Differential Abdominal Pain Women: Appendicitis, Cholecystitis, diverticulosis, ischemic bowel, pancreatitis, hepatitis, UTI, gastroenteritis, AAA, incarcerated hernia, bowel obstruction, constipation, inflammatory bowel, hepatitis, peptic ulcer disease, splenic infarction, perforated viscus, vulvitis, ovarian torsion, PID, kidney stone, p lacenta abruption, this is not meant to be an all-inclusive list EKG interpreted by me (3pts min.). @ -None done X-rays interpreted by me (1pt min.). @ -None done CT interpreted by me (1pt min.). @ -Noncontrasted abdominal and pelvic CT shows left proximal 5 mm ureteral stone U/S interpreted by me (1pt. min.). @ -None done What testing was considered but not performed or refused? (CT, X-rays, U/S, labs)? Why? @ -None What meds were considered but not given or refused? Why? @ -None Did you discuss the management of the patient with other professionals (professionals i.e. , PA, MASONRY CONTRACTOR, lab, RT, psych nurse, social work supervisor, cpr instructor, teacher, radiation officer, piano case and bench assembler)? Give summary @ -No Was smoking cessation discussed for >3mins.? @ -No Was critical care preformed (if so, how long)? @ -No Were there social determinants of health that impacted care today? How? (Homelessness, low income, unemployed, alcoholism, drug addiction, tr ansportation, low edu. Level, literacy, decrease access to med. care, [facility], rehab)? @ -No Was there de-escalation of care discussed even if they declined (Discuss DNR or withdrawal of care, Hospice)? DNR status @ -No What co-morbidities impacted this encounter? (DM, HTN, Smoking, COPD, CAD, Cancer, CVA, ARF, Chemo, Hep., AIDS, mental health diagnosis, sleep apnea, morbid obesity)? @ -None Was patient admitted / discharged? Hospital course, mention meds given and route, prescriptions, significant lab abnormalities, going to OR and other pertinent info. @ -47 Year-old female presents emergency department for days of left-sided flank pain she has extensive nephrolithiasis history. Reports that her symptoms feels slightly different than usual. Vital signs otherwise stable. Laboratory evaluation shows hematuria. Rest was unremarkable. CT shows 5 mm proximal left ureteral stone. Patient given fluids and analgesics. Patient observed in emergency department stable medical condition she is agreeable with discharge follow-up with her urologist. Undiagnosed new problem with uncertain prognosis? @ -No Drug Therapy requiring intensive monitoring for toxicity (Heparin, Nitro, Insulin, Cardizem)? @ -No Were any procedures done? @ -No Diagnosis/symptom? Acute, or Chronic, or Acute on Chronic? Uncomplicated (without systemic symptoms) or Complicated (systemic symptoms)? @ -Obstructive kidney stone Side effects of treatment? @ -No Exacerbation, Progression, or Severe Exacerbation? @ -No Poses a threat to life or bodily function? How? (Chest pain, [place], [place], pneumonia, PE, COPD, DKA, ARF, appy, cholecystitis, CVA, Diverticulitis, Homicidal, Suicidal, threat to staff... and all critical care pts) @ -yes - Lab Data Result diagrams: 08/24/23 09:48 08/24/23 09:48 Lab Results 08/24/23 08/24/23 08/24/23 Range/Units 09:48 09:48 09:48 WBC 8.8 (3.8-10.6) k/uL RBC 4.81 (3.80-5.40) m/uL Hgb 15.0 (11.4-16.0) gm/dL Hct 45.2 (34.0-46.0) % MCV 93.8 (80.0-100.0) fL MCH 31.1 (25.0-35.0) pg MCHC 33.1 (31.0-37.0) g/dL RDW 12.0 (11.5-15.5) % Plt Count 332 (150-450) k/uL MPV 7.4 Neutrophils % 63 % Lymphocytes % 25 % Monocytes % 5 % Eosinophils % 5 % Basophils % 0 % Neutrophils # 5.5 (1.3-7.7) k/uL Lymphocytes # 2.2 (1.0-4.8) k/uL Monocytes # 0.5 (0-1.0) k/uL Eosinophils # 0.4 (0-0.7) k/uL Basophils # 0.0 (0-0.2) k/uL Sodium 138 (137-145) mmol/L Potassium 4.7 (3.5-5.1) mmol/L Chloride 101 (98-107) mmol/L Carbon Dioxide 26 (22-30) mmol/L Anion Gap 11 mmol/L BUN 10 (7-17) mg/dL Creatinine 0.52 (0.52-1.04) mg/dL Est GFR (CKD-EPI)AfAm >90 (>60 ml/min/1.73 sqM) Est GFR (CKD-EPI)NonAf >90 (>60 ml/min/1.73 sqM) Glucose 118 H (74-99) mg/dL Calcium 9.9 (8.4-10.2) mg/dL Total Bilirubin 0.5 (0.2-1.3) mg/dL AST 36 (14-36) U/L ALT 39 H (4-34) U/L Alkaline Phosphatase 102 (38-126) U/L Total Protein 7.9 (6.3-8.2) g/dL Albumin 4.7 (3.5-5.0) g/dL Urine Color Yellow Urine Appearance Clear (Clear) Urine pH 5.5 (5.0-8.0) Ur Specific [place] 1.019 (1.001-1.035) Urine Protein Negative (Negative) Urine Glucose (UA) Negative (Negative) Urine Ketones Negative (Negative) Urine Blood Large H (Negative) Urine Nitrite Negative (Negative) Urine Bilirubin Negative (Negative) Urine Urobilinogen <2.0 (<2.0) mg/dL Ur Leukocyte Esterase Negative (Negative) Urine RBC >182 H (0-5) /hpf Urine WBC 1 (0-5) /hpf Ur Squamous Epith Cells 2 (0-4) /hpf Urine Bacteria Occasional H (None) /hpf Hyaline Casts 1 (0-2) /lpf Urine Mucus Few H (None) /hpf Disposition Clinical Impression: Kidney stone Disposition: HOME SELF-CARE Instructions (If sedation given, give patient instructions): Kidney Stones (ED) Is patient prescribed a controlled substance at d/c from ED?: No Referrals: Parrish Velazco MD [STAFF PHYSICIAN] - 1-2 days Time of Disposition: 12:09
[2023-08-24 10:05] LABS: Basophils % (A) 0 %; Eosinophils # (A) 0.4 k/uL (0-0.7); Eosinophils % (A) 5 %; HCT 45.2 % (34.0-46.0); Lymphocytes # (A) 2.2 k/uL (1.0-4.8); Lymphocytes % (A) 25 %; MCH 31.1 pg (25.0-35.0); MCHC 33.1 g/dL (31.0-37.0); MCV 93.8 fL (80.0-100.0); Mean Platelet Volume 7.4; Monocytes # (A) 0.5 k/uL (0-1.0); Monocytes % (A) 5 %; Neutrophils # (A) 5.5 k/uL (1.3-7.7); Neutrophils % (A) 63 %; Platelet Count 332 k/uL (150-450); RBC 4.81 m/uL (3.80-5.40); WBC 8.8 k/uL (3.8-10.6)
[2023-08-24 10:13] LABS: Appearance,Urine Clear (Clear); Bacteria,Urine Occasional /hpf; Bilirubin,Urine Negative (Negative); Blood,Urine Large (Negative); Color,Urine Yellow; Glucose,Urine (UA) Negative (Negative); Hyaline Casts,Urine 1 /lpf (0-2); Ketones,Urine Negative (Negative); Leukocyte Esterase,Urine Negative (Negative); Mucus,Urine Few /hpf; Nitrite,Urine Negative (Negative); PH, Urine 5.5 (5.0-8.0); Protein,Urine Negative (Negative); RBC,Urine >182 /hpf (0-5); Specific Gravity,Urine 1.019 (1.001-1.035); Squamous Epithelial Cell,Urine 2 /hpf (0-4); Urobilinogen,Urine <2.0 mg/dL (<2.0); WBC,Urine 1 /hpf (0-5)
[2023-08-24 10:35] LABS: ALT 39 U/L (4-34); AST 36 U/L (14-36); African American GFR (CKD) >90 (>60 ml/min/1.73 sqM); Albumin 4.7 g/dL (3.5-5.0); Alkaline Phosphatase 102 U/L (38-126); Anion Gap 11 mmol/L; Blood Urea Nitrogen 10 mg/dL (7-17); Calcium 9.9 mg/dL (8.4-10.2); Carbon Dioxide 26 mmol/L (22-30); Chloride 101 mmol/L (98-107); Glucose 118 mg/dL (74-99); Non-African American GFR(CKD) >90 (>60 ml/min/1.73 sqM); Potassium 4.7 mmol/L (3.5-5.1); Sodium 138 mmol/L (137-145); Total Bilirubin 0.5 mg/dL (0.2-1.3); Total Protein 7.9 g/dL (6.3-8.2)
--- NOTE | 2023-08-24 10:57 | CT ---
EXAMINATION TYPE: CT abdomen pelvis wo con DATE OF EXAM: 08/24/2023 COMPARISON: 04/24/2022 HISTORY: 47 year-old female left flank pain, nausea CT DLP: 1071.4 mGycm. Automated exposure control for dose reduction was used. TECHNIQUE: Contiguous axial scanning of the abdomen and pelvis without IV contrast. Coronal and sagit jeannine reconstructions performed. FINDINGS: LUNG BASES: No significant abnormality is appreciated. LIVER/GB: Mildly diminished attenuation of the liver parenchyma suggests mild fatty infiltration. Gal lbladder surgically absent. PANCREAS: No significant abnormality is seen. SPLEEN: Hilar splenule. No significant abnormality is seen. ADRENALS: No significant abnormality is seen. KIDNEYS: 3 mm nonobstructing right renal stone. Mild hydronephrosis on the left with a 5 mm stone upp er left ureter. BOWEL: Dilated small bowel, free fluid, or free air. Patient status post partial right hemicolectomy with ileocolonic anastomosis of the proximal third transverse colon. Scattered mild stool. No pericol onic inflammatory change. LYMPH NODES: No greater than 1cm abdominal or pelvic lymph nodes are appreciated. PELVIS: Uterus surgically absent. Left ovary visualized. Right ovary not well delineated from adjacen t bowel loops. There is some surgical material redemonstrated right adnexa/right lower quadrant regio n. Mild circumferential bladder wall thickening probably chronic for the patient. No abnormal fluid c ollection in the pelvis. OSSEOUS STRUCTURES: No significant abnormality is seen. OTHER: Postsurgical change along the anterior midline. IMPRESSION: 1. A 5 mm stone in the upper left ureter with mild obstructive uropathy. 2. A 3 mm nonobstructive stone right kidney. 3. Mild fatty infiltration of the liver. Previous partial right hemicolectomy. Previous hysterectomy and cholecystectomy.
[2023-08-24] MEDS ORDERED: SODIUM CHLORIDE 0.9% 1,000 ML IV STA (11:02)
[2023-08-24] MEDS ORDERED: KETOROLAC 15 MG/ML 1 ML VIAL IVP STA (11:02)
[2023-08-24] MEDS ORDERED: ONDANSETRON 4 MG/2 ML VIAL IVP STA (11:02)
--- NOTE | 2023-08-24 12:16 | ED ---
Medical Decision Making - Lab Data Result diagrams: 08/24/23 09:48 08/24/23 09:48 Lab Results 08/24/23 08/24/23 08/24/23 Range/Units 09:48 09:48 09:48 WBC 8.8 (3.8-10.6) k/uL RBC 4.81 (3.80-5.40) m/uL Hgb 15.0 (11.4-16.0) gm/dL Hct 45.2 (34.0-46.0) % MCV 93.8 (80.0-100.0) fL MCH 31.1 (25.0-35.0) pg MCHC 33.1 (31.0-37.0) g/dL RDW 12.0 (11.5-15.5) % Plt Count 332 (150-450) k/uL MPV 7.4 Neutrophils % 63 % Lymphocytes % 25 % Monocytes % 5 % Eosinophils % 5 % Basophils % 0 % Neutrophils # 5.5 (1.3-7.7) k/uL Lymphocytes # 2.2 (1.0-4.8) k/uL Monocytes # 0.5 (0-1.0) k/uL Eosinophils # 0.4 (0-0.7) k/uL Basophils # 0.0 (0-0.2) k/uL Sodium 138 (137-145) mmol/L Potassium 4.7 (3.5-5.1) mmol/L Chloride 101 (98-107) mmol/L Carbon Dioxide 26 (22-30) mmol/L Anion Gap 11 mmol/L BUN 10 (7-17) mg/dL Creatinine 0.52 (0.52-1.04) mg/dL Est GFR (CKD-EPI)AfAm >90 (>60 ml/min/1.73 sqM) Est GFR (CKD-EPI)NonAf >90 (>60 ml/min/1.73 sqM) Glucose 118 H (74-99) mg/dL Calcium 9.9 (8.4-10.2) mg/dL Total Bilirubin 0.5 (0.2-1.3) mg/dL AST 36 (14-36) U/L ALT 39 H (4-34) U/L Alkaline Phosphatase 102 (38-126) U/L Total Protein 7.9 (6.3-8.2) g/dL Albumin 4.7 (3.5-5.0) g/dL Urine Color Yellow Urine Appearance Clear (Clear) Urine pH 5.5 (5.0-8.0) Ur Specific [place] 1.019 (1.001-1.035) Urine Protein Negative (Negative) Urine Glucose (UA) Negative (Negative) Urine Ketones Negative (Negative) Urine Blood Large H (Negative) Urine Nitrite Negative (Negative) Urine Bilirubin Negative (Negative) Urine Urobilinogen <2.0 (<2.0) mg/dL Ur Leukocyte Esterase Negative (Negative) Urine RBC >182 H (0-5) /hpf Urine WBC 1 (0-5) /hpf Ur Squamous Epith Cells 2 (0-4) /hpf Urine Bacteria Occasional H (None) /hpf Hyaline Casts 1 (0-2) /lpf Urine Mucus Few H (None) /hpf Disposition Clinical Impression: Kidney stone Disposition: HOME SELF-CARE Instructions (If sedation given, give patient instructions): Kidney Stones (ED) Prescriptions: Tamsulosin [Flomax] 0.4 mg PO DAILY 10 Days #10 cap Ketorolac [Toradol] 10 mg PO Q6HR 3 Days #12 tab Is patient prescribed a controlled substance at d/c from ED?: No Referrals: Parrish Velazco MD [STAFF PHYSICIAN] - 1-2 days
[2023-08-24 12:39] VITALS: RESP 16
== END 2023-08-24 12:30 | disposition home or self-care (01) ==
LOC: EC 09:26
DX: K76.0 Fatty (change of) liver, not elsewhere classified (principal); N20.2 Calculus of kidney with calculus of ureter; J45.909 Unspecified asthma, uncomplicated; F32.A Depression, unspecified; F41.9 Anxiety disorder, unspecified; Z79.899 Other long term (current) drug therapy; Z88.6 Allergy status to analgesic agent; Z88.5 Allergy status to narcotic agent; Z88.8 Allergy status to other drugs, medicaments and biological substances
CPT/HCPCS: 36415; 80053; 85025; 81001; 74176; 99284; 96374; 96375; 96361; J2405; J1885

== ENCOUNTER → 2023-08-25 | Outpatient (CLI) | payer BC ==
--- NOTE | 2023-08-25 11:17 | XR ---
EXAMINATION TYPE: XR KUB DATE OF EXAM: 08/25/2023 COMPARISON: 03/02/2018 INDICATION: Left renal stone TECHNIQUE: Single view abdomen frontal projection FINDINGS: There is a normal bowel gas pattern. Psoas margins are normal. No organomegaly is present. A 0.5 cm calcification may be at the inferior pole left kidney level. This could be within the left u reter. IMPRESSION: 1. Proximal left ureteral stone or possibly inferior left kidney renal stone
== END | disposition home or self-care (01) ==
LOC: RADXRMAIN 09:33
PROVIDERS: ATTEND Urology
DX: N20.1 Calculus of ureter (principal)
CPT/HCPCS: 74018

== ENCOUNTER 2023-08-29 08:53 | Day surgery (SDC) | payer BC ==
[2023-08-26 09:27] VITALS: BMI 38.6
--- NOTE | 2023-08-27 10:14 | P.GSHP ---
History of Present Illness H&P Date: 08/27/23 47-year-old female with a history of stones. She presented with colic a week ago. She is found to have a 5 mm proximal ureteral stone on the left. She came to see us. A KUB showed the stone still present in the left proximal ureter. He was given treatment options and the chosen to proceed with shockwave lithotripsy. - Constitutional Constitutional: Denies chills, Denies fever - EENT Eyes: denies blurred vision, denies pain Ears, nose, mouth and throat: Denies headache, Denies sore throat - Cardiovascular Cardiovascular: Denies chest pain, Denies shortness of breath - Respiratory Respiratory: Denies cough, Denies 7 - Gastrointestinal Gastrointestinal: Denies abdominal pain, Denies diarrhea, Denies nausea, Denies vomiting - Genitourinary (Female) Genitourinary: Denies dysuria, Denies hematuria - Genitourinary (Male) Genitourinary: Denies dysuria, Denies hematuria - Musculoskeletal Musculoskeletal: Denies myalgias - Integumentary Integumentary: Denies pruritus, Denies rash - Neurological Neurological: Denies numbness, Denies weakness - Psychiatric Psychiatric: Denies anxiety, Denies depression - Endocrine Endocrine: Denies fatigue, Denies weight change Past Medical History Past Medical History: Asthma, Cancer, GI Bleed Additional Past Medical History / Comment(s): gastric ulcers, 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, kidney stones History of Any Multi-Drug Resistant Organisms: None Reported Past Surgical History: Bowel Resection, Section, Cholecystectomy, Hysterectomy, Orthopedic Surgery, Uterine Ablation Additional Past Surgical History / Comment(s): ovarian cyst, femur ORIF, oral surgery, right colectomy Past Anesthesia/Blood Transfusion Reactions: No Reported Reaction Additional Past Anesthesia/Blood Transfusion Reaction / Comment(s): Hx of blood transfusion- no reaction Past Psychological History: Anxiety, Depression Smoking Status: Never smoker Past Alcohol Use History: None Reported Past Drug Use History: None Reported - Past Family History Father Family Medical History: Hyperlipidemia, Hypertension Sister(s) Additional Family Medical History / Comment(s): heart disease @ 8 months, congenital Mother Family Medical History: Hyperlipidemia, Hypertension, Thyroid Disorder Medications and Allergies Home Medications Medication Instructions Recorded Confirmed Type Sertraline [Zoloft] 100 mg PO DAILY 02/26/15 08/26/23 History Zolpidem [Ambien] 10 mg PO HS 02/26/15 08/26/23 History Acetaminophen Tab [Tylenol Tab] 1,000 mg PO Q6HR PRN 04/10/20 08/26/23 History Tamsulosin [Flomax] 0.4 mg PO DAILY 10 Days #10 cap 08/24/23 08/26/23 Rx ALPRAZolam [Xanax] 0.25 mg PO DIRECTED PRN 08/26/23 08/26/23 History Ketorolac [Toradol] 10 mg PO Q6HR PRN 08/26/23 08/26/23 History Lanreotide Acetate [Somatuline 0 mg SQ DIRECTED 08/26/23 08/26/23 History [place]] Nitrofurantoin Monohyd/M-Cryst 100 mg PO Q12HR 08/26/23 08/26/23 History [Macrobid] Telotristat Etiprate [Xermelo] 250 mg PO TID 08/26/23 08/26/23 History prednisoLONE ACETATE 1% OPHTH 1 drops BOTH EYES QID 08/26/23 08/26/23 History [Pred Forte 1%] Allergies Allergy/AdvReac Type Severity Reaction Status Date / Time ibuprofen AdvReac PAST Verified 08/26/23 08:58 HISTORY OF GI BLEED morphine AdvReac Rapid Verified 08/26/23 08:58 Heart Rate, "JITTERY", Nausea pregabalin [From Lyrica] AdvReac JITTERY, Verified 08/26/23 08:58 PALPITATIONS Surgical - Exam - General well developed, well nourished, no distress - Eyes normal ocular movement, no icteric - ENT no hearing loss, no congestion - Neck no masses, trachea midline - Respiratory normal respiratory effort, clear to auscultation - Abdomen Abdomen: soft, non tender, no guarding, no rigid, no rebound - Integumentary no rash, no abnormal pigmentation - Neurologic no disoriented, no combative - Psychiatric oriented to time, oriented to person, oriented to place, speech is normal, memory intact Results - Imaging Abdominal x-ray: report reviewed, image reviewed CT scan - abdomen: report reviewed, image reviewed CT scan - pelvis: report reviewed, image reviewed Assessment and Plan Assessment: Impression: Left ureteral calculus with colic. Recommendations: Extracorporeal shockwave lithotripsy left
--- NOTE | 2023-08-29 09:21 | XR ---
EXAMINATION TYPE: XR KUB DATE OF EXAM: 08/29/2023 Comparison: 08/25/2023 Clinical History: 47-year-old female presurgical for left-sided calculus Findings: Scattered mild stool. Nonobstructive bowel gas pattern. Possible subtle 4 mm calcification left mikaela edian mid abdomen only on one image. Impression: Questionable 4 mm subtle calcification left paramedian mid abdomen similar to that seen on 08/25/2023.
[2023-08-29] MEDS ORDERED: LACTATED RINGERS 1,000 ML IV ONE (09:57)
[2023-08-29 10:02] VITALS: RESP 16; TEMP 97.9
[2023-08-29] MEDS ORDERED: KETAMINE HCL IN 0.9 % NACL 50 MG/5 ML SYRINGE ONE (10:10)
[2023-08-29] MEDS ORDERED: fentaNYL (PF) 50 MCG/ML 2 ML AMP ONE (10:10)
[2023-08-29] MEDS ORDERED: MIDAZOLAM 2 MG/2 ML VIAL ONE (10:10)
[2023-08-29] MEDS ORDERED: PROPOFOL 10 MG/ML 20 ML VIAL IV ONE (10:10)
--- NOTE | 2023-08-29 10:39 | P.OP ---
Date of Procedure: 08/29/23 Preoperative Diagnosis: Left ureteral stone Postoperative Diagnosis: same Procedure(s) Performed: Left ESWL Anesthesia: MAC Surgeon: Chang Samano Condition: stable Disposition: PACU Indications for Procedure: 47-year-old female with a history of stones. She presented with colic a week ago. She is found to have a 5 mm proximal ureteral stone on the left. She came to see us. A KUB showed the stone still present in the left proximal ureter. He was given treatment options and the chosen to proceed with shockwave lithotripsy. Description of Procedure: The patient was taken to the operating room and placed on the Dornier Compact Delta II lithotripter in the supine position. The calculi were seen on biplanar fluoroscopy. . Once the patient was properly positioned and sedated, lithotripsy was performed. The energy level was gradually increased per protocol, to an energy level of 4. A total of 2500 shocks were given at a rate of 80 shocks per minute. Fluoroscopy was utilized at a minimum to ensure proper positioning and determine the treatment status. There was good fragmentation of the stone. The patient tolerated the procedure well was taken to the recovery room in stable condition. Instructions were given to strain the urine, and the patient will follow-up within one week.
[2023-08-29 11:37] VITALS: BP 135/83; PULSE 66
== END 2023-08-29 11:51 | disposition home or self-care (01) ==
LOC: ORWHC2ENDO 08:53
PROVIDERS: ATTEND Urology
DX: N20.1 Calculus of ureter (principal); J45.909 Unspecified asthma, uncomplicated; Z87.442 Personal history of urinary calculi; K25.9 Gastric ulcer, unspecified as acute or chronic, without hemorrhage or perforation; Z90.49 Acquired absence of other specified parts of digestive tract; Z90.710 Acquired absence of both cervix and uterus; Z98.890 Other specified postprocedural states; F41.9 Anxiety disorder, unspecified; F32.A Depression, unspecified; Z82.49 Family history of ischemic heart disease and other diseases of the circulatory system; Z83.49 Family history of other endocrine, nutritional and metabolic diseases; Z88.6 Allergy status to analgesic agent; Z79.899 Other long term (current) drug therapy; K25.4 Chronic or unspecified gastric ulcer with hemorrhage; Z85.05 Personal history of malignant neoplasm of liver
CPT/HCPCS: 74018; 50590; J2250; J3010; J2704

== ENCOUNTER → 2023-09-05 | Outpatient (CLI) | payer BC ==
--- NOTE | 2023-09-05 17:33 | XR ---
EXAMINATION TYPE: XR KUB DATE OF EXAM: 09/05/2023 Comparison: 08/29/2023 Clinical History: 48-year-old female N20.1 Ureteral Calculus, follow-up left ESWL Findings: Nonobstructive bowel gas pattern. Mild scattered stool. Supine imaging limited for assessment of free air. No suspicious renal calculi are identified radiographically. Impression: No suspicious calculus identified radiographically.
== END | disposition home or self-care (01) ==
LOC: RADXRMAIN 10:06
PROVIDERS: ATTEND Urology
DX: N20.1 Calculus of ureter (principal)
CPT/HCPCS: 74018

== ENCOUNTER → 2024-01-18 | Outpatient (CLI) | payer BC ==
[2024-01-18 16:20] LABS: ALT 29 U/L (8-44); AST 21 U/L (13-35); Albumin 4.7 g/dL (3.8-4.9); Albumin/Globulin Ratio 1.96 Ratio (1.60-3.17); Alkaline Phosphatase 99 U/L (41-126); BUN/Creat Ratio 11.17 Ratio (12.00-20.00); Blood Urea Nitrogen 6.7 mg/dL (9.0-27.0); Calcium 10.3 mg/dL (8.7-10.3); Carbon Dioxide 24.4 mmol/L (21.6-31.8); Chloride 101 mmol/L (96-109); Chol/HDL Ratio 2.67 Ratio; Globulin 2.4 g/dL (1.6-3.3); Glucose 138 mg/dL (70-110); LDL Cholesterol,Calculated 103.3 mg/dL (0.0-131.0); Potassium 5.1 mmol/L (3.5-5.5); Sodium 140 mmol/L (135-145); Total Bilirubin 0.2 mg/dL (0.3-1.2); Total Protein 7.1 g/dL (6.2-8.2)
[2024-01-18 16:27] LABS: Basophils # (A) 0.02 X 10*3/uL (0.00-0.10); Basophils % (A) 0.3 %; Eosinophils # (A) 0.37 X 10*3/uL (0.04-0.35); Eosinophils % (A) 5.4 %; HCT 42.4 % (37.2-46.3); HGB 13.7 g/dL (12.0-15.0); Lymphocytes # (A) 1.08 X 10*3/uL (0.90-5.00); Lymphocytes % (A) 15.7 %; MCH 29.7 pg (27.0-32.0); MCHC 32.3 g/dL (32.0-37.0); MCV 91.8 FL (80.0-97.0); Mean Platelet Volume 11.1 FL (9.5-12.2); Monocytes # (A) 0.49 X 10*3/uL (0.20-1.00); Monocytes % (A) 7.1 %; NRBC Per 100 WBC 0 X 10*3/uL (0.00-0.01); Neutrophils # (A) 4.89 X 10*3/uL (1.80-7.70); Neutrophils % (A) 71.1 %; Platelet Count 342 X 10*3/uL (140-440); RBC 4.62 X 10*6/uL (4.10-5.20); RDW 12.3 % (11.5-14.5); WBC 6.88 X 10*3/uL (4.50-10.00)
== END | disposition home or self-care (01) ==
LOC: LABWHC1 09:21
PROVIDERS: ATTEND Family Medicine
DX: Z00.00 Encounter for general adult medical examination without abnormal findings (principal); R73.03 Prediabetes
CPT/HCPCS: 36415; 80053; 80061; 83036; 84443; 85025

== ENCOUNTER → 2024-07-24 | Outpatient (CLI) | payer BC | END | disposition home or self-care (01) | LOC: LABWHC1 11:16 | PROVIDERS: ATTEND Dermatology MOHS-Micrographic Surgery | DX: L30.9 Dermatitis, unspecified (principal) | CPT/HCPCS: 36415; 82085; 82550; 86038; 86039 ==